=== PATIENT | female | born 1980 | race African-American/Black ===

== ENCOUNTER 2016-09-24 06:34 | Inpatient (IN) ==
[2016-09-24] MEDS ORDERED: SODIUM CHLORIDE 0.9% 500 ML IV STA (07:25)
[2016-09-24] MEDS ORDERED: ONDANSETRON 4 MG/2 ML VIAL IV STA (07:25)
[2016-09-24 07:33] LABS: Apearance,Urine CLOUDY (Clear); Bacteria,Urine Occasional /HPF (Few); Bilirubin,Urine Negative (Negative); Blood, Urine Negative (Negative); Glucose,Urine (UA) Negative (Negative); Ketones,Urine Negative (Negative); Mucus,Urine Occasional /LPF (Occasional); Nitrite,Urine Negative (Negative); Protein,Urine Negative; RBC,Urine 2 /HPF (0-4); Squamous Epithelial Cell,Urine Few /HPF (0-10); Urine Color Yellow (Yellow); Urine Specific Gravity 1.021 (1.001-1.035); Urine Urobilinogen < 2.0 EU/DL (0.2-1.0); WBC,Urine 4 /HPF (0-6)
[2016-09-24] MEDS ORDERED: ONDANSETRON 4 MG/2 ML VIAL ONE (07:34)
[2016-09-24 07:37] LABS: Basophils # 0.1 10*3/uL (0.0-0.2); Basophils % 0.4 % (0.0-0.8); Hematocrit 33.7 VOL% (35.7-47.0); Hemoglobin 11.5 GM/DL (12.0-16.0); Immature Granulocytes % 0.5 %; Immature Granulocytes Absolute 0.11 #; Lymphocytes # 2.6 10*3/uL (1.4-4.0); Lymphocytes % 12.9 % (21.3-54.2); Mean Corpuscular HGB Conc 34.1 GM/DL (32-36); Mean Corpuscular Hemoglobin 28 PG (27-34); Mean Corpuscular Volume 82.6 FL (87-102); Mean Platelet Volume 10.1 FL (9.6-12.0); Monocytes # 1.1 10*3/uL (0.11-0.8); Monocytes % 5.2 % (1.7-12.7); Neutrophils # 16.4 10*3/uL (1.4-7.4); Platelet Count 438 T/CUMM (130-400); Red Blood Count 4.08 MC/CUMM (3.8-5.5); White Blood Count 20.3 T/CUMM (4-12)
[2016-09-24 08:10] LABS: Alanine Aminotransferase 26 U/L (13-56); Albumin 3.8 G/DL (3.4-5.0); Alkaline Phosphatase 88 U/L (45-117); Aspartate Amino Transferase 18 U/L (0-37); Bilirubin,Total < 0.39 MG/DL (0.2-1.0); Blood Urea Nitrogen 11 MG/DL (7-18); Calcium 8.8 MG/DL (8.5-10.1); Glucose 110 MG/DL (74-106); Magnesium 2.2 MG/DL (1.8-2.4); Osmolality,Calculated 272.8 MOS/KG (273-304); Sodium 137 MMOL/L (136-145); Total Protein 7.2 G/DL (6.4-8.3)
[2016-09-24 08:31] LABS: Band Neutrophils 2 % (0-10); Hypochromasia Slight; Lymphocytes 16 % (20-55); Microcytosis Slight; Segmented Neutrophils 79 % (50-85); Total Cells Counted 100
--- NOTE | 2016-09-24 08:34 | Ultrasound Report ---
Exam: US abdomen limited Date: 09/24/2016 7:26 AM Comparison: 07/21/2010 Indication: Right upper quadrant pain with nausea Technique:[Multiple transabdominal real-time scans were obtained of the right upper quadrant. Color-flow scans obtained. Ultrasound images were captured and stored.] Findings: No gallstones identified. Wall of gallbladder measures 2.7 mm with negative sonographic Thomas sign. CBD is normal in size measuring 3 mm. The liver is normal in size with fatty infiltration. Right kidney measures 108 mm in length with no mass or hydronephrosis. The visualized pancreas and aorta have an unremarkable appearance. However the pancreas, distal aorta including aortic bifurcation, and IVC are obscured by bowel gas. Color flow documented. Limited color flow scans obtained. Evidence of ascites around the liver, spleen and in the visualized pelvis. Impression: No definite gallstones are identified. The wall of the gallbladder is not significantly thickened with negative sonographic Thomas sign. Fatty infiltration of the liver. Interval development of ascites. Bowel gas limits exam. PROCEDURE INTERPRETED AT [facility] DEPARTMENT OF RADIOLOGY Final Report Signed by: Dr. Priti Quinn
--- NOTE | 2016-09-24 09:39 | CT Report ---
CT abdomen pelvis w con Indication: Generalized abdominal pain. Elevated white blood cell count. Ascites. Comparison: None. Technique: CT of the abdomen and pelvis was performed following administration of intravenous contrast. The CT examination was performed using one or more of the following dose reduction techniques: Automatic exposure control, adjustment of the mA and kV according to patient size, or iterative reconstruction techniques. Findings: Extremely large field of view utilized for image acquisition reduces anatomic detail. Lower chest: No acute findings are noted within the lower chest. Liver: No specific abnormality of the liver is demonstrated. The portal vein appears patent. Ascites is noted within the upper abdomen surrounding the liver and surrounding the spleen. Gallbladder: The gallbladder demonstrates no significant abnormality. Spleen: Spleen is normal in size and appearance. Pancreas: Pancreas demonstrates no significant abnormality. Adrenal glands: The adrenal glands demonstrate no significant abnormalities. Kidneys: The kidneys demonstrate no significant abnormalities. Aorta: The aorta demonstrates no significant abnormality. Inferior vena cava: The inferior vena cava demonstrates no significant abnormality. Lymph nodes: A few borderline to minimally enlarged lymph nodes or soft tissue nodules are noted within the anterior mesenteric fat and peritoneal fat of the abdomen. Example, image #102, 5 mm focus is present. Stomach and bowel: Closely approximated to the greater curvature of the stomach, but not distinctly arising from the stomach, there is a moderate to large heterogeneously enhancing solid mass measuring 10 cm in transverse dimension, 11.2 cm in AP dimension, and 13.2 cm in craniocaudal dimension. Stomach and duodenum otherwise are unremarkable. The small bowel loops demonstrate no significant abnormalities. There is heterogeneous attenuation of the anterior omentum and anterior peritoneal fat without distinct evidence of nodularity or mass involving the peritoneal surface. Diverticula are present along the hepatic flexure and proximal transverse large bowel. Large bowel is otherwise unremarkable. Intrapelvic contents: Uterus and ovaries are unremarkable. The intrapelvic contents with exception of ascites are unremarkable. Skeletal structures: The imaged bony structures of the lumbar spine, lower chest, pelvis, proximal femurs demonstrate no acute findings. Soft tissues and muscular structure of the body wall: Demonstrate no significant abnormalities. Impression: 1. Large heterogeneously enhancing solid mass in close approximation to the stomach possibly arising from the stomach as primary differential consideration including gastrointestinal stromal tumor (GIST). 2. Presence of intra-abdominal and intrapelvic ascites combined with small enhancing nodular foci of attenuation suggesting borderline to minimally enlarged lymph nodes or soft tissue nodules is worrisome for omental metastatic disease. No discrete enhancing nodules or nodularity of the peritoneal lining can be identified to suggest peritoneal disease. 3. Colonic diverticulosis is demonstrated without evidence of diverticulitis. 09/24/2016 9:28 AM PROCEDURE INTERPRETED AT [facility] DEPARTMENT OF RADIOLOGY Final Report Signed by: Dr. Kvng Ayers
[2016-09-24] MEDS ORDERED: LORazepam 2 MG/1 ML VIAL IV STA (10:35)
[2016-09-24] MEDS ORDERED: ONDANSETRON 4 MG/2 ML VIAL IV PRN (10:36)
[2016-09-24] MEDS ORDERED: MORPHINE 2 MG/1 ML SYRINGE IV PRN (10:36)
[2016-09-24] MEDS ORDERED: LORazepam 2 MG/1 ML VIAL ONE (10:42)
--- NOTE | 2016-09-24 10:51 | Hospitalist History & Physical ---
<Tasha Jacob - Last Filed: 09/24/16 10:49> Assessment and Plan (1) Leukocytosis Status: Acute Assessment and plan: WBCs are noted at 20.3. We will start Zosyn every 6 hours. Current Visit: Yes (2) Abdominal mass Status: Acute Assessment and plan: CT in of the abdomen and pelvis suggested a large had a road generously enhancing solid mass arising from the stomach as well as primary differential consideration including gastrointestinal stromal tumor. This is very concerning to me; however the patient needs a biopsy to confirm diagnosis. She is obviously overloaded with the new findings. We will consult surgery to evaluate. We will hydrate and manage pain and nausea. Current Visit: Yes History of Present Illness Chief complaint: abdominal pain History of present illness: This is a very pleasant 36-year-old female that presented to the ED at [facility] this morning for evaluation of abdominal pain. Patient has a medical history significant for hypertension. She reports no surgical history at the time of encounter. The patient reported the onset of pain about 2 days prior to presentation. She sought medical attention on yesterday in [facility]. She reports that she was seen there, given a GI cocktail, and discharged. She returned home and took a laxative, however she did not have any relief. She also reports that during the encounter at the hospital in [place], she did not receive any x-rays or blood work during the encounter. She reports no current tobacco, alcohol, or illicit drug use. However she does report abdominal pain, dysuria, fever, nausea, pain and discomfort in the right shoulder, decrease in p.o. intake, and pain upon minimal movement. At the time of ED presentation labs were obtained, which revealed gross leukocytosis at 20.3, hemoglobin at 11.5, hematocrit 33.7, MCV at 82.6, platelet count of 138, neutrophils % at 81, lymphocytes % at 12.9, neutrophil # at 16.4, monocyte # at 1.1, and lymphocytes at 16. Chemistry panels were significant for a glucose level at 110 and calculated osmolality at 272.8. Lipid panel revealed a cholesterol level at 219 and HDL cholesterol at 39. Urinalysis was significant for small amount of leukocytes and urobilinogen less than 2.0. Her urine test was negative. Ultrasound of the abdomen reported no definite gallstones, the wall of the gallbladder is not significant currently thickened with negative sonographic Thomas sign, fatty infiltration of the liver, interval development of ascites, and bowel gas limits the exam. CT of the abdomen reported a large heterogeneously enhancing solid mass in close approximation to the stomach possibly arising from the stomach is a primary differential consideration including gastrointestinal stromal tumor, presence of intra-abdominal and intrapelvic ascites combined with small enhancing nodular foci of attenuation suggesting borderline to minimally enlarged lymph nodes or soft tissue nose is worrisome for omental metastatic disease, no discrete enhancing nodules or nodularity of the peritoneal lying can be identified to suggest peritoneal disease, and colonic diverticulosis is demonstrated without evidence of diverticulitis. After brief discussion with both Dr. Carter and Dr. Watts, the patient will be admitted to the hospitalist services for further evaluation. We will consult surgery to evaluate and assist during the clinical encounter. Home Medications Medication Instructions Recorded Confirmed Type Albuterol Sulfate [Ventolin HFA] 2 puffs INH Q4H PRN 09/24/16 09/24/16 History Losartan [Cozaar] 50 mg PO DAILY 09/24/16 09/24/16 History hydroCHLOROthiazide 25 mg PO DAILY 09/24/16 09/24/16 History [Hydrochlorothiazide] Allergies Allergy/AdvReac Type Severity Reaction Status Date / Time No Known Allergies Allergy Verified 09/24/16 06:39 Medical,Surgical,& Family Hx - Medical History Cardio: History of: Hypertension - Social History Smoking Status: Never smoker Frequency of Alcohol Use: Occasionally Type of Drug Use: None Marital Status: Lives With:: Spouse Functional capacity: independent ambulation 12 point system: reviewed and no additional remarkable complaints except as stated Exam - Constitutional Vitals: Period Temp Pulse Resp BP Sys/Mccauley Pulse Ox Last 24 Hr 98.6 F 98-116 16-20 107-151/68-99 100-100 General appearance: over weight - Head Head exam: Present: normal inspection, normocephalic, atraumatic - Eye Eye exam: Present: EOMI, conjunctival injection Pupils: Present: CASANDRA, normal accommodation - ENT ENT exam: Present: normal exam, normal external ear exam, normal oropharynx - Neck Neck exam: Present: normal inspection. Absent: lymphadenopathy, meningismus - Respiratory Respiratory exam: Present: clear to auscultation bilaterally, rales, rhonchi, stridor, wheezes - Cardiovascular Cardiovascular exam: Present: gallop, tachycardia. Absent: carotid bruit, diastolic murmur, JVD, rubs, systolic murmur - GI/Abdominal GI/Abdominal exam: Present: normal bowel sounds, tenderness (Right upper quadrant), soft - Extremities Exam Extremities exam: Present: normal inspection, normal capillary refill, full ROM. Absent: edema - Back Exam Back exam: Present: CVA tenderness (L), CVA tenderness (R) - Neurological Exam Neurological exam: Present: alert, oriented X3, CN II-XII intact - Psychiatric Psychiatric exam: Present: anxious, other (tearful) - Skin Skin exam: Present: normal color, warm, dry Results - Labs CBC & BMP: 09/24/16 07:12 09/24/16 07:12 Lab Results: I have reviewed the past 24 hour labs Quality Measures - VTE Contraindication to Pharmacological VTE Prophylaxis: Wafarin Use 1st Trimester of <Alessio Watts - Last Filed: 09/24/16 16:42> History of Present Illness History of present illness: Patient seen and examined independently of YANIV Jacob, agree with assessment and plan as documented. 36 y/o AAF being admitted with a mass on CT, which appears to be close to her stomach. Family history positive for prostate cancer in her father and breast cancer in her grandmother. 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 Surgery has already been consulted and seen the patient. Cancer markers ordered. CT being repeated with contrast. Will get GI to evaluate for assistance. Exam - Constitutional Vitals: Period Temp Pulse Resp BP Sys/Mccauley Pulse Ox Last 24 Hr 98.5 F-98.6 F 98-119 16-20 107-155/68-99 98-100 Results - Labs CBC & BMP: 09/24/16 07:12 09/24/16 07:12
[2016-09-24 11:03] LABS: Risk Ratio 5.62; Thyroid Stimulating Hormone 2.11 uIU/ml (0.358-3.74)
--- NOTE | 2016-09-24 11:34 | Emergency Department Note ---
Sandra Alexis Hilary, am scribing for, and in the presence of, Jose Daniel Carter MD 07:27. Emma Alexis Phillip K, MD, personally performed the services described in this documentation, ascribed by Ondina Flores in my presence, and it is both accurate and complete . Arrival - Arrival Chief Complaint: Abdominal / Flank Pain Stated Complaint: abd pain ED Nursing Triage Note: C/O Generalized abd pain- Unknown when last BM was; Pt reports taking a laxative yesterday without any results. Pt reports that she was seen at [facility] yesterday and was given a GI cocktail without any relief. Pt denies that they did blood work or xrays while she was there. Pt also reports dysuria. Denies fever. Mode of Arrival: Wheelchair Limitations: No Limitations Source: Patient, RN Notes Reviewed - History of Present Illness HPI Narrative: Pt is a 36 y/o black female presenting to the ED with c/o generalized abdominal pain which onset 2 days ago and got worse last night. She reports that she was seen at [facility] yesterday and was given a GI cocktail with no relief and states they did not do any blood work or xrays while she was there, she also states she took a laxative yesterdays with still no relief. Pt confirms abdominal pain, dysuria, fever, nausea, pain in right shoulder, decreased appetite and pain worsens upon movement but denies vomiting or hematuria. Pt has a PMHx of HTN. No other complaints or problems stated in the ED. Onset (ago): day(s) Date of Last Menstrual Period: September 06 Allergies/Adverse Reactions: Allergies Allergy/AdvReac Type Severity Reaction Status Date / Time No Known Allergies Allergy Verified 09/24/16 06:39 Home Medications: Home Medications Medication Instructions Recorded Confirmed Type Albuterol Sulfate [Ventolin HFA] 2 puffs INH Q4H PRN 09/24/16 09/24/16 History Losartan [Cozaar] 50 mg PO DAILY 09/24/16 09/24/16 History hydroCHLOROthiazide 25 mg PO DAILY 09/24/16 09/24/16 History [Hydrochlorothiazide] Review of System - Review of System 12 point system: reviewed and no additional remarkable complaints except as stated - Review of System Constitutional: Absent: fever Gastrointestinal: Present: abdominal pain, nausea. Absent: vomiting Genitourinary female: Present: dysuria. Absent: hematuria Musculoskeletal: Present: joint swelling (right shoulder pain) Medical,Surgical,& Family Hx - Medical History Cardio: History of: Hypertension - Social History Smoking Status: Never smoker Frequency of Alcohol Use: Occasionally Type of Drug Use: None Exam Vital Signs: Vital Signs Temperature 98.6 F 09/24/16 06:40 Pulse Rate 106 H 09/24/16 10:45 Respiratory Rate 20 09/24/16 10:45 Blood Pressure 130/90 09/24/16 10:45 O2 Sat by Pulse Oximetry 100 09/24/16 10:45 - General General appearance: alert, in no apparent distress - Head Head exam: Present: atraumatic, normocephalic - Eye Eye exam: Present: normal appearance, PERRL, EOMI - ENT ENT exam: Present: mucous membranes moist, TM's normal bilaterally. Absent: mucous membranes dry - Neck Neck exam: Present: full ROM, trachea midline. Absent: tenderness - Chest Chest inspection: Present: symmetric chest wall rise. Absent: tenderness - Respiratory Respiratory exam: Present: normal lung sounds bilaterally. Absent: respiratory distress - Cardiovascular Cardiovascular exam: Present: normal rhythm, tachycardia, normal heart sounds, gallop. Absent: murmur, rubs - Abdominal Exam Abdominal exam: Present: soft, tenderness (RUQ tenderness), normal bowel sounds. Absent: distention - Extremities Exam Extremities exam: Present: full ROM. Absent: tenderness - Back Exam Back exam: Present: full ROM. Absent: tenderness, CVA tenderness (R), CVA tenderness (L) - Neurological Exam Neurological exam: Present: alert, oriented X3, CN II-XII intact, motor sensory deficit - Psychiatric Psychiatric exam: Present: normal affect, normal mood - Skin Skin exam: Present: warm, dry, intact, normal color. Absent: rash Course Course Narrative: Patient will be admitted to the hospitalist for further workup. Results - Labs CBC & BMP: 09/24/16 07:12 09/24/16 07:12 Lab Results: I have reviewed the patients labs Labs: Laboratory Tests 09/24/16 09/24/16 07:12 07:12 WBC 20.3 H RBC 4.08 Hgb 11.5 L Hct 33.7 L MCV 82.6 L Plt Count 438 H Neut % (Auto) 81.0 H Lymph % (Auto) 12.9 L Neut # (Auto) 16.4 H [place] # (Auto) 1.1 H Urine Color Yellow Urine Appearance Cloudy Urine Urobilinogen < 2.0 H Urine Leukocytes Small H Urine Test Negative Laboratory Tests 09/24/16 07:12 Sodium 137 Potassium 4.0 Chloride 103 Carbon Dioxide 23 Glucose 110 H Calculated Osmolality 272.8 L Laboratory Tests 09/24/16 07:12 Total Counted 100 Lymphocytes 16 L Hypochromasia Slight Microcytosis Slight - Diagnostic Findings Procedure: CT Abdomen and Pelvis: report reviewed by me (1. Large heterogeneously enhancing solid mass in close approximation to the stomach possibly arising from the stomach as primary differential consideration including gastrointestinal stromal tumor (GIST) 2. Presence of intra-abdominal and intrapelvic ascites combined with small enhancing nodular foci of attenuation suggesting borderline to minimally enlarged lymph nodes or soft tissue nodules is worrisome for nodularity of the peritoneal lining can be identified to suggest peritoneal disease. 3. Colonic diverticulosis is demonstrated without evidence of diverticulitis. ), Ultrasound: report reviewed by me (abdomen: No definite gallstones are identified. The wall of the gallbladder is not significantly thickened with negative sonographic Thomas sign. Fatty infiltration of the liver. Interval development of ascites. Bowel gas limits exam.) Disposition Clinical Impression: Abdominal mass, right upper quadrant, Elevated WBC count Case discussed with: patient, patient's family Disposition: Still a Patient Condition: Guarded
[2016-09-24] MEDS: SODIUM CHLORIDE 0.9% 1,000 ML IV SCH (11:41)
[2016-09-24] MEDS ORDERED: ALBUTEROL 2.5 MG/3 ML NEB RESP TX PRN (16:02)
--- NOTE | 2016-09-24 16:08 | General Surgery Consult Note ---
Assessment and Plan - Time spent with patient Time spent with patient: Greater than 30 minutes (1) Abdominal mass Status: Acute Assessment and plan: Impression: Abdominal mass etiology unknown possibly from the stomach but cannot clearly determine. Plan: 1. Because of her elevated white count and her ascites go ahead and put her on low Mefoxin for right now. 2. We will repeat a CT scan of the abdomen and pelvis tomorrow with contrast nor see if we can identify where this mass may be coming from. 3. She may still need to have BE and a upper GI series is difficult to say. 4. Will get GI to see her for consideration of scopes in order to count to be sure what we might be dealing with. 5. Will consult oncology to look at possible tumor markers and get their opinion as well he might be looking at this time. Current Visit: Yes Qualifiers: Abdominal location: epigastric Qualified Code(s): R19.06 - Epigastric swelling, mass or lump History of Present Illness Chief complaint: Abdominal mass History of present illness: Ms. Keen is a 36 year old female -[place] who essentially been in pretty good health somewhat overweight with no unusual complaints of pain or weight loss. Over the last couple days though she has had some increased abdominal discomfort little bit worse today brought her into the emergency room. While in the emergency room she had an ultrasound of the gallbladder which basically was negative since she has been somewhat like epigastric pain. This was proceeded with a CT scan that unfortunately was not with contrast. This demonstrated a mass in the abdomen where it was difficult to tell where it was coming from suggestive of possibly coming from the stomach. There was some ascites associated with it at this time. There may be some necrotic changes in it that may be why she is symptomatic at this time. At this point will go ahead and try to get a contrasted CT tomorrow to get an idea what we might be dealing with us if we can identify worse coming from. We will go ahead and get GI involved for possible scope for biopsy. We could consider paracentesis with to obtain fluid questionable whether not be safe to do a biopsy of the tumor mass itself. We will get oncology to see him for possible evaluation and any tumor markers that may need to be done at this time. Patient may require surgery at some point but I think it is important at this time to try to identify where this mass is coming from. I favor keeping her own may be just some full liquids for now and make sure we get her bowels good and clean for the possibility of a colon scope first of the week and possible EGD. Home Medications Medication Instructions Recorded Confirmed Type Albuterol Sulfate [Ventolin HFA] 2 puffs INH Q4H PRN 09/24/16 09/24/16 History Losartan [Cozaar] 50 mg PO DAILY 09/24/16 09/24/16 History hydroCHLOROthiazide 25 mg PO DAILY 09/24/16 09/24/16 History [Hydrochlorothiazide] Allergies Allergy/AdvReac Type Severity Reaction Status Date / Time No Known Allergies Allergy Verified 09/24/16 06:39 Medical,Surgical,& Family Hx - Medical History Cardio: History of: Hypertension Gastrointestinal: History of: GERD Reproductive: History of: Complication - Surgical History HEENT Surgeries: Surgical HX of: Tonsilectomy & Adenoidectomy Abdominal Surgeries: Surgical HX of: Abdominal Surgery (tubal ligation) Reproductive Surgeries: Surgical HX of;: Tubal Ligation Patient denies;: Genitourinary Surgery - Family History Family History: Reports;: Family Cancer (prostate ca Dad), Family Diabetes ( sister), Family Heart Disease (dad), Family Hypertension (most family) Denies;: Family Psychiatric Problems, Family Stroke - Social History Smoking Status: Never smoker Frequency of Alcohol Use: Occasionally Type of Drug Use: None 12 point system: reviewed and no additional remarkable complaints except as stated Exam - Constitutional Vitals: Period Temp Pulse Resp BP Sys/Mccauley Pulse Ox Last 24 Hr 98.5 F-98.6 F 98-119 16-20 107-155/68-99 98-100 General appearance: mild distress - Head Head exam: Present: normal inspection - ENT ENT exam: Present: normal exam - Neck Neck exam: Present: normal inspection - Respiratory Respiratory exam: Present: clear to auscultation bilaterally, rales - Cardiovascular Cardiovascular exam: Present: RRR - GI/Abdominal GI/Abdominal exam: Present: hypoactive bowel sounds, tenderness (Epigastric and left upper quadrant area), soft, other (Fullness in the upper part of the abdomen little mild tenderness on deep palpation) - Extremities Exam Extremities exam: Present: normal inspection - Back Exam Back exam: Present: normal inspection - Neurological Exam Neurological exam: Present: alert, oriented X3, CN II-XII intact - Skin Skin exam: Present: normal color, warm, dry Quality Measures - VTE Contraindication to Pharmacological VTE Prophylaxis: Wafarin Use 1st Trimester of Results - Labs CBC & BMP: 09/24/16 07:12 09/24/16 07:12 Lab Results: I have reviewed the past 24 hour labs - Diagnostic Findings Procedure: CT Abdomen and Pelvis: report reviewed by me (Noncontrasted showing a mass in the left side the abdomen), Ultrasound: report reviewed by me ( Gallbladder appears to be normal)
[2016-09-24] MEDS: cefOXitin 1,000 MG in SODIUM CHLORIDE 0.9% 100 ML IV SCH ×2 (17:11→21:38)
[2016-09-25] MEDS: cefOXitin 1,000 MG in SODIUM CHLORIDE 0.9% 100 ML IV SCH ×4 (04:29→23:31)
[2016-09-25] MEDS: SODIUM CHLORIDE 0.9% 1,000 ML IV SCH ×4 (04:54→23:34)
[2016-09-25 05:37] LABS: Basophils # 0.1 10*3/uL (0.0-0.2); Basophils % 0.5 % (0.0-0.8); Eosinophils % 0.3 % (0.00-10.9); Hematocrit 28.3 VOL% (35.7-47.0); Hemoglobin 9.3 GM/DL (12.0-16.0); Immature Granulocytes % 0.9 %; Immature Granulocytes Absolute 0.12 #; Lymphocytes # 2.9 10*3/uL (1.4-4.0); Lymphocytes % 22.1 % (21.3-54.2); Mean Corpuscular HGB Conc 32.9 GM/DL (32-36); Mean Corpuscular Hemoglobin 28 PG (27-34); Mean Platelet Volume 9.9 FL (9.6-12.0); Monocytes % 7.2 % (1.7-12.7); Neutrophils # 9.1 10*3/uL (1.4-7.4); Platelet Count 365 T/CUMM (130-400); Red Blood Count 3.37 MC/CUMM (3.8-5.5); Red Cell Distribution Width 15.2 % (9.3-17.3); White Blood Count 13.2 T/CUMM (4-12)
[2016-09-25 05:46] LABS: Partial Thromboplastin Time 26.1 SECS (0-40)
[2016-09-25 06:20] LABS: Albumin 3.2 G/DL (3.4-5.0); Bilirubin,Total 0.6 MG/DL (0.2-1.0); Calcium 8.1 MG/DL (8.5-10.1); Magnesium 2.2 MG/DL (1.8-2.4); Osmolality,Calculated 277.4 MOS/KG (273-304); Potassium 3.8 MMOL/L (3.5-5.1); Total Protein 6.1 G/DL (6.4-8.3)
[2016-09-25 08:15] LABS: % Iron Saturation 8.4 % (18-50); Ferritin 84.5 ng/ml (8-252)
[2016-09-25] MEDS: LOSARTAN 50 MG TABLET PO SCH (08:59)
[2016-09-25] MEDS: hydroCHLOROthiazide 25 MG TABLET PO SCH (09:00)
--- NOTE | 2016-09-25 09:09 | CT Report ---
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 Technique: CT of the abdomen and pelvis was performed following administration of intravenous and oral contrast. Coronal and sagittal reformatted images were additionally created and submitted for review. The total DLP is 3182.5 mGy*cm. Dose reduction: This CT exam was performed using one or more of the following dose reduction techniques: Automated exposure control, automated adjustment of the mA and/or KV according to patient size, or use of iterative reconstruction technique. Findings: Very minimal posterior basilar dependent atelectatic changes are noted bilaterally. Lung bases are otherwise clear. There is no pleural or pericardial effusion. ABDOMEN: Liver/Gallbladder: No abnormal enhancing hepatic lesions. No biliary ductal dilatation or gallstones. Spleen: No acute findings. Pancreas: No acute findings. Adrenals: Within normal limits in appearance. Kidneys: Symmetric enhancement with no hydronephrosis/focal mass or other abnormality. Delayed images demonstrate contrast excretion as expected from both kidneys. Bowel/mesentery: Again, there is a large enhancing mass which is inseparable from the greater curvature of the stomach in the left upper quadrant of the abdomen. Overall size of the mass is unchanged (approximately 13 x 10 x 11 cm) when compared to the study from one day previously. On axial image [id number] and sagittal image [id number], this large enhancing mass is essentially inseparable from the stomach. Again, the primary differential consideration would be a GIST tumor (in the absence of other cancer history). Other neoplastic considerations cannot be entirely excluded but are favored to be less likely. Again, there is also mild thickening within the adjacent omentum primarily within the left upper quadrant. There is at least one punctate enhancing nodule measuring 7 mm (axial image 104) which may represent an omental metastatic deposit. There is moderate ascites within the abdomen with perihepatic and perisplenic free fluid noted. There is no evidence of small bowel dilatation/obstruction. There is no mesenteric adenopathy is visualized. Distal colon is nondilated and oral contrast is noted throughout small and large bowel. Retroperitoneum: No evidence of aortic aneurysm or significant retroperitoneal adenopathy. PELVIS: Minimal free fluid noted dependently, likely reactive. Bladder appears unremarkable. Uterus and ovaries are unremarkable for CT technique. BONES: No acute or suspicious osseous abnormalities are identified. IMPRESSION: 1. Similar appearance of the large heterogeneous enhancing solid mass in close approximation of the stomach with the similar primary differential consideration of gastrointestinal stromal tumor. 2. Similar intra-abdominal ascites. Similar prominence of the omentum is nonspecific but at least one small enhancing nodule within the omentum may represent metastatic spread. 09/25/2016 8:53 AM PROCEDURE INTERPRETED AT [facility] DEPARTMENT OF RADIOLOGY Final Report Signed by: Rao Parra
--- NOTE | 2016-09-25 09:22 | EKG Report ---
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
--- NOTE | 2016-09-25 09:53 | Gastrointestinal Consult Note ---
Assessment and Plan - Time spent with patient Time spent with patient: Greater than 30 minutes (1) Abdominal mass Status: Acute Current Visit: Yes Qualifiers: Abdominal location: epigastric Qualified Code(s): R19.06 - Epigastric swelling, mass or lump (2) Other specified counseling Status: Acute Current Visit: Yes History of Present Illness History of present illness: Ms. Keen is a 36 year old female Home Medications Medication Instructions Recorded Confirmed Type Albuterol Sulfate [Ventolin HFA] 2 puffs INH Q4H PRN 09/24/16 09/24/16 History Losartan [Cozaar] 50 mg PO DAILY 09/24/16 09/24/16 History hydroCHLOROthiazide 25 mg PO DAILY 09/24/16 09/24/16 History [Hydrochlorothiazide] Allergies Allergy/AdvReac Type Severity Reaction Status Date / Time No Known Allergies Allergy Verified 09/24/16 06:39 Medical,Surgical,& Family Hx - Medical History Cardio: History of: Hypertension Gastrointestinal: History of: GERD Reproductive: History of: Complication - Surgical History HEENT Surgeries: Surgical HX of: Tonsilectomy & Adenoidectomy Abdominal Surgeries: Surgical HX of: Abdominal Surgery (tubal ligation) Reproductive Surgeries: Surgical HX of;: Tubal Ligation Patient denies;: Genitourinary Surgery - Family History Family History: Reports;: Family Cancer (prostate ca Dad), Family Diabetes ( sister), Family Heart Disease (dad), Family Hypertension (most family) Denies;: Family Psychiatric Problems, Family Stroke - Social History Smoking Status: Never smoker Frequency of Alcohol Use: Occasionally Type of Drug Use: None Exam - Constitutional Vitals: Period Temp Pulse Resp BP Sys/Mccauley Pulse Ox Last 24 Hr 98.3 F-98.5 F 93-119 18-20 111-155/68-92 95-100 Results - Labs CBC & BMP: 09/25/16 05:13 09/25/16 05:13 Quality Measures - VTE Contraindication to Pharmacological VTE Prophylaxis: Wafarin Use 1st Trimester of Note Addendum: PLEASE NOTE -- automatic citation of patient information is unavoidable in this electronic note. I have made a reasonable effort to review the information cited , but it is not a part of my evaluation, impression, or recommendation unless specifically discussed in the dictated text that follows. As well, voice recognition software was used in the creation of this clinical note. Reasonable effort was made to identify and correct gross errors. Despite proofreading, errors in nursery nurse may be present, including nonsense verbiage at times. If you encounter such an error, please contact me at [phone] for discussion and correction. -- Alix Chief complaint: abdominal mass History of present illness: This is a new patient, a 36-year-old female seen by consultation for evaluation of abdominal mass identified on CT scan. The patient is admitted to the hospitalist service under the care of Dr. Watts with a primary diagnosis of same. The patient was admitted through the emergency department yesterday with primary complaint of abdominal pain. Evaluation at that time revealed leukocytosis with minimal left shift, possible urinary tract infection, and the aforementioned abnormal CT findings. The patient was admitted for surgical consultation and she has, in fact, been seen by a neurosurgical nurse, Dr. Young, who has recommended further radiologic and endoscopic evaluation in order to better characterize this lesion. Serologic tumor markers have been ordered and, so far, are negative. The patient reports feeling pretty normal at present. She denies abdominal pain, nausea, vomiting, and bowel changes. She is very worried that this may be a cancer. Patient denies fever, chills, night sweats, rigors, headache, dizziness, neck pain, visual changes, redness of the eyes, dysphagia, odynophagia, difficulty chewing, chest pain, shortness of breath, weight loss, nausea, vomiting, regurgitation, hematemesis, diarrhea, hematochezia, melena, proctalgia, constipation, dysuria, skin changes, temperature regulation issues, flushing, easy bleeding/bruising, musculoskeletal pain, mental status change, numbness/ weakness in the extremities, yellowing of the eyes/skin, cutaneous eruptions, allergies to food or drug, family history of gastrointestinal cancer and colon polyps, and other complaints in general. Review of systems: 12 point review of systems was negative except as documented above. Outpatient medications: albuterol, losartan, hydrochlorothiazide Inpatient medications: albuterol, Cefoxitin, hydrochlorothiazide, losartan, morphine, Zofran, normal saline infusion Past Medical History: hypertension, gastroesophageal reflux disease, tubal ligation Social history: negative tobacco. Occasional alcohol Family history: father with prostate cancer; no known gastrointestinal cancer Physical examination: Vital Signs: Current vital signs reviewed and documented above. General Appearance: well-appearing. Not acutely ill. Head: Normocephalic. Neck: Palpation of the neck revealed no abnormalities. Eyes: No scleral icterus. No scleral injection. No conjunctival pallor. Oral Cavity: Odor of breath was normal. No drooling was observed. Lips showed no abnormalities. Floor of the mouth showed no abnormalities. Pharynx: Oropharynx was normal. Lungs: Respiration rhythm and depth was normal. Cardiovascular: Heart rate and rhythm were normal. No murmurs were appreciated. Abdomen: abdomen was protuberant due to obesity but not distended. Abdominal palpation revealed no tenderness and mass was not discovered. Ascites was not appreciated. Abdominal auscultation revealed positive bowel sounds. Musculoskeletal System: Musculoskeletal system was grossly normal. Neurological: level of consciousness was normal. Speech was normal. Skin: General appearance was normal. Color and pigmentation were normal. No skin lesions. Laboratory: white blood count 13.2, hemoglobin 9.3, hematocrit 28.3, platelets 365, INR 1.0, PT 10.0, ALT 23, AST 12, total bilirubin 0.6, CEA undetectable, CA 19-9 undetectable Radiology: CT of the abdomen and pelvis, September 24, 2016 -- large heterogeneous enhancing solid mass in close approximation to the stomach, likely representing a neoplastic lesion; prominence of the omentum with intra-abdominal ascites; one small enhancing nodule within the omentum Impressions: 1. 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 The differential diagnosis includes gastrointestinal stromal tumor (GIST), leiomyoma, leiomyosarcoma, and several others. The large size likely contributes to the heterogeneous appearance as there is likely some measure of necrosis. As well, the possible metastatic spread to the omentum is consistent. I agree with oncology evaluation as, if this is a stromal tumor, the patient may be a candidate for adjuvant chemotherapy. The lesion is not clearly invading the gastric lumen but upper endoscopy for attempted tissue diagnosis is reasonable. Failing that, endoscopic ultrasound is the most reasonable next diagnostic modality. Percutaneous biopsy carries the theoretical risk of metastatic seeding and would generally be avoided. We will plan upper endoscopy on Tuesday and follow up with further recommendations pending the result of that examination. 2. Other specified counseling -- The patient was seen for greater than 30 minutes. The patient was counseled for greater than 50% of this time regarding differential diagnosis, likely diagnosis, diagnostic and therapeutic alternatives, risks/benefits/alternatives of medications and procedures, and plan of care generally. The patient expressed understanding and wishes to proceed. Recommendations: -- continued supportive care -- diagnostic upper endoscopy on Tuesday -- if no diagnosis by upper endoscopy, consider outpatient endoscopic ultrasound for definitive diagnosis -- agree with oncology evaluation -- thank you for this consultation. We will follow with you.
--- NOTE | 2016-09-25 09:53 | Oncology Consult Note ---
Assessment and Plan (1) Abdominal mass Status: Acute Assessment and plan: At this point her clinical situation points toward a gastrointestinal stromal tumor. I think GI evaluation with possible upper endoscopy is the best initial step. The fact that both her CEA and CA-19-9 levels are negative is promising this is not an adenocarcinoma. We are still awaiting her CA 125 level. Surgery has already seen her and I think at some point we will have to at least go into her belly for either resection or staging purposes. For now starting with an EGD would be the most prudent to see what the gastric cavity looks like and possibly obtain a biopsy. I will continue to follow her with you while her case evolves. Current Visit: Yes Qualifiers: Abdominal location: epigastric Qualified Code(s): R19.06 - Epigastric swelling, mass or lump (2) Elevated WBC count Status: Acute Current Visit: Yes History of Present Illness History of present illness: Ms. Keen is a 36 year old female who was admitted with abdominal pain and was found to have a large gastric mass on CT imaging. This mass measured 13 x [address] scan mentioned mild ascites and some question of nodularity of the omentum. Neither one of these findings are definitive for metastatic spread. Her initial tumor markers with CEA and CA-19-9 are negative. She denies any recent weight loss. She denies any significant family history of GI or BOILER RELINER malignancies. 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 She has not yet been seen by GI. Surgery has seen her. Home Medications Medication Instructions Recorded Confirmed Type Albuterol Sulfate [Ventolin HFA] 2 puffs INH Q4H PRN 09/24/16 09/24/16 History Losartan [Cozaar] 50 mg PO DAILY 09/24/16 09/24/16 History hydroCHLOROthiazide 25 mg PO DAILY 09/24/16 09/24/16 History [Hydrochlorothiazide] Allergies Allergy/AdvReac Type Severity Reaction Status Date / Time No Known Allergies Allergy Verified 09/24/16 06:39 Medical,Surgical,& Family Hx - Medical History Cardio: History of: Hypertension Gastrointestinal: History of: GERD Reproductive: History of: Complication - Surgical History HEENT Surgeries: Surgical HX of: Tonsilectomy & Adenoidectomy Abdominal Surgeries: Surgical HX of: Abdominal Surgery (tubal ligation) Reproductive Surgeries: Surgical HX of;: Tubal Ligation Patient denies;: Genitourinary Surgery - Family History Family History: Reports;: Family Cancer (prostate ca Dad), Family Diabetes ( sister), Family Heart Disease (dad), Family Hypertension (most family) Denies;: Family Psychiatric Problems, Family Stroke - Social History Smoking Status: Never smoker Frequency of Alcohol Use: Occasionally Type of Drug Use: None 12 point system: reviewed and no additional remarkable complaints except as stated - Constitutional Constitutional: Absent: fatigue, malaise, weight loss - Gastrointestinal Gastrointestinal: Present: abdominal pain, cramping, early satiety. Absent: dysphagia, hematemesis, hematochezia, melena, vomiting - Musculoskeletal Musculoskeletal ROS: Absent: back pain Exam - Constitutional Vitals: Period Temp Pulse Resp BP Sys/Mccauley Pulse Ox Last 24 Hr 98.3 F-98.5 F 93-119 18-20 111-155/68-92 95-100 General appearance: normal weight, no acute distress - Head Head Exam: Present: normocephalic, atraumatic - Eye Eye Exam: Present: EOMI Pupils: Present: PERRL - ENT ENT exam: Present: normal exam, normal oropharynx - Neck Neck exam: Absent: lymphadenopathy, thyromegaly - Respiratory Respiratory exam: Present: CTAB. Absent: wheezes - Cardiovascular Cardiovascular exam: Present: RRR. Absent: JVD, systolic murmur - GI/Abdominal GI/Abdominal exam: Present: soft. Absent: ascites, distended, firm, mass - Neurological Exam Neurological exam: Present: alert, oriented X3 - Psychiatric Psychiatric exam: Present: normal affect, anxious - Skin Skin exam: Present: warm, dry Results - Labs CBC & BMP: 09/25/16 05:13 09/25/16 05:13 Lab Results: I have reviewed the past 24 hour labs - Diagnostic Findings Procedure: CT Abdomen and Pelvis: report reviewed by me Quality Measures - VTE Contraindication to Pharmacological VTE Prophylaxis: Wafarin Use 1st Trimester of
[2016-09-25] MEDS ORDERED: MAGNESIUM CITRATE 300 ML BOTTLE PO ONE (11:03)
--- NOTE | 2016-09-25 11:06 | General Surgery Progress Note ---
Assessment and Plan - Time spent with patient Time spent with patient: Less than 30 minutes (1) Abdominal mass Status: Acute Assessment and plan: Impression: Abdominal mass etiology unknown possibly from the stomach but cannot clearly determine. Plan: 1. Because of her elevated white count and her ascites go ahead and put her on low Mefoxin for right now. 2. We will repeat a CT scan of the abdomen and pelvis tomorrow with contrast nor see if we can identify where this mass may be coming from. 3. She may still need to have BE and a upper GI series is difficult to say. 4. Will get GI to see her for consideration of scopes in order to count to be sure what we might be dealing with. 5. Will consult oncology to look at possible tumor markers and get their opinion as well he might be looking at this time. 09/25/2016. Patient in general is doing better at this time although she is on her menstrual period at this point. Pain in her abdomen is much improved she is tolerating liquids without problems. Labs look good hematocrit is 29 at this time. Follow-up CT scan with contrast suggests that this is coming off probably the greater curvature distal part of the stomach. She is probably going require a partial gastrectomy or a wedge and this will wait for GI to scope her and see what is present internally at this time. Oncology is seen her and looks like we may be looking at a Gists tumor. Current Visit: Yes Qualifiers: Abdominal location: epigastric Qualified Code(s): R19.06 - Epigastric swelling, mass or lump Subjective Patient reports: Present: feels better, pain is less, tolerating liquids well, afebrile Exam - Constitutional Vitals: Period Temp Pulse Resp BP Sys/Mccauley Pulse Ox Last 24 Hr 98.3 F-98.5 F 93-108 18-20 111-148/68-78 95-98 General appearance: mild distress - Head Head exam: Present: normal inspection - ENT ENT exam: Present: normal exam - Neck Neck exam: Present: normal inspection - Respiratory Respiratory exam: Present: clear to auscultation bilaterally, rales - Cardiovascular Cardiovascular exam: Present: RRR - GI/Abdominal GI/Abdominal exam: Present: hypoactive bowel sounds, soft. Absent: tenderness - Extremities Exam Extremities exam: Present: normal inspection - Back Exam Back exam: Present: normal inspection - Neurological Exam Neurological exam: Present: alert, oriented X3, CN II-XII intact - Skin Skin exam: Present: normal color, warm, dry Results - Labs CBC & BMP: 09/25/16 05:13 09/25/16 05:13 Lab Results: I have reviewed the past 24 hour labs Quality Measures - VTE Contraindication to Pharmacological VTE Prophylaxis: Wafarin Use 1st Trimester of
[2016-09-25] MEDS: ACETAMINOPHEN 325 MG TABLET PO PRN ×2 (12:20→23:32)
--- NOTE | 2016-09-25 12:44 | XRay Report ---
Exam: XR chest 2V Indication: Abdominal mass Comparison study: 07/21/2010 Findings: The heart, mediastinum and bony structures are stable from prior. There is no focal consolidation, pneumothorax or pleural effusion identified. Impression: No acute cardiopulmonary process. No significant change from prior. PROCEDURE INTERPRETED AT [facility] DEPARTMENT OF RADIOLOGY Final Report Signed by: Rao Parra
--- NOTE | 2016-09-25 14:50 | Hospitalist Progress Note ---
Assessment and Plan (1) Urinary tract infection Status: Acute Assessment and plan: UA not very impressive But clinical symptoms match On cefoxitin Current Visit: Yes (2) Hypertension Status: Acute Assessment and plan: Losartan Current Visit: Yes (3) Leukocytosis Status: Acute Assessment and plan: Possibly secondary to uti Improving Current Visit: Yes (4) Abdominal mass Status: Acute Assessment and plan: Surgery, oncology and GI on board Plan for EGD tuesday Current Visit: Yes Qualifiers: Abdominal location: epigastric Qualified Code(s): R19.06 - Epigastric swelling, mass or lump Hospitalist: Subjective Interval history: No acute events overnight. Denies abdominal pain. Exam - Constitutional Vitals: Period Temp Pulse Resp BP Sys/Mccauley Pulse Ox Last 24 Hr 98.3 F-98.8 F 93-111 19-20 111-137/65-75 95-97 General appearance: over weight - Head Head exam: Present: normocephalic, atraumatic - Eye Eye exam: Present: EOMI Pupils: Present: CASANDRA - ENT ENT exam: Present: normal exam - Neck Neck exam: Present: normal inspection - Respiratory Respiratory exam: Present: clear to auscultation bilaterally. Absent: rhonchi, wheezes - Cardiovascular Cardiovascular exam: Present: regular rate and rhythm - GI/Abdominal GI/Abdominal exam: Present: normal bowel sounds, soft. Absent: tenderness, rebound - Extremities Exam Extremities exam: Present: normal inspection - Back Exam Back exam: Present: normal inspection - Neurological Exam Neurological exam: Present: alert, oriented X3 - Psychiatric Psychiatric exam: Present: normal affect, normal mood - Skin Skin exam: Present: warm, intact Results - Labs CBC & BMP: 09/25/16 05:13 09/25/16 05:13 Quality Measures - VTE Contraindication to Pharmacological VTE Prophylaxis: Wafarin Use 1st Trimester of
[2016-09-26] MEDS: cefOXitin 1,000 MG in SODIUM CHLORIDE 0.9% 100 ML IV SCH ×4 (04:39→22:11)
[2016-09-26 05:28] LABS: Basophils # 0.1 10*3/uL (0.0-0.2); Basophils % 0.5 % (0.0-0.8); Eosinophils # 0.1 10*3/uL (0.0-0.87); Eosinophils % 0.6 % (0.00-10.9); Hematocrit 26.2 VOL% (35.7-47.0); Hemoglobin 8.7 GM/DL (12.0-16.0); Immature Granulocytes % 0.5 %; Immature Granulocytes Absolute 0.06 #; Lymphocytes # 2.6 10*3/uL (1.4-4.0); Lymphocytes % 23.6 % (21.3-54.2); Mean Corpuscular HGB Conc 33.2 GM/DL (32-36); Mean Corpuscular Hemoglobin 28 PG (27-34); Mean Corpuscular Volume 83.2 FL (87-102); Mean Platelet Volume 9.7 FL (9.6-12.0); Monocytes # 0.8 10*3/uL (0.11-0.8); Monocytes % 7.1 % (1.7-12.7); Neutrophils # 7.5 10*3/uL (1.4-7.4); Neutrophils % 67.7 % (38.7-73.9); Platelet Count 321 T/CUMM (130-400); Red Blood Count 3.15 MC/CUMM (3.8-5.5); Red Cell Distribution Width 15.3 % (9.3-17.3); White Blood Count 11.1 T/CUMM (4-12)
[2016-09-26 05:58] LABS: Bilirubin,Total 0.5 MG/DL (0.2-1.0); Calcium 8.2 MG/DL (8.5-10.1); Osmolality,Calculated 279.1 MOS/KG (273-304); Potassium 3.4 MMOL/L (3.5-5.1); Total Protein 5.9 G/DL (6.4-8.3)
[2016-09-26] MEDS: SODIUM CHLORIDE 0.9% 1,000 ML IV SCH (06:51)
--- NOTE | 2016-09-26 08:53 | Gastrointestinal Progress Note ---
Assessment and Plan (1) Abdominal mass Status: Acute Current Visit: Yes Qualifiers: Abdominal location: epigastric Qualified Code(s): R19.06 - Epigastric swelling, mass or lump (2) Other specified counseling Status: Acute Current Visit: Yes Exam (Progress Note) - Constitutional Vitals: Period Temp Pulse Resp BP Sys/Mccauley Pulse Ox Last 24 Hr 98.1 F-99.5 F 84-106 16-22 118-145/64-87 98-100 Results - Labs CBC & BMP: 09/26/16 05:14 09/26/16 05:14 Note Addendum: PLEASE NOTE -- automatic citation of patient information is unavoidable in this electronic note. I have made a reasonable effort to review the information cited , but it is not a part of my evaluation, impression, or recommendation unless specifically discussed in the dictated text that follows. As well, voice recognition software was used in the creation of this clinical note. Reasonable effort was made to identify and correct gross errors. Despite proofreading, errors in convict guard may be present, including nonsense verbiage at times. If you encounter such an error, please contact me at [phone] for discussion and correction. -- Alix Chief complaint: abdominal mass History of present illness: the patient is a 36-year-old female seen for follow- up of abdominal mass. She reports feeling about the same today. She has no pain at present. She is tolerating food. She is having bowel movements. She has been seen by the oncology service who also recommended endoscopic evaluation of her stomach. Review of systems: 12 point review of systems was negative except as documented above. Medications: Tylenol, albuterol, Cefoxitin, hydrochlorothiazide, losartan, morphine, Zofran, normal saline infusion Physical examination: Vital Signs: Current vital signs reviewed and documented above. General Appearance: well-appearing. Not acutely ill. Head: Normocephalic. Neck: Palpation of the neck revealed no abnormalities. Eyes: No scleral icterus. No scleral injection. No conjunctival pallor. Oral Cavity: Odor of breath was normal. No drooling was observed. Lips showed no abnormalities. Floor of the mouth showed no abnormalities. Pharynx: Oropharynx was normal. Lungs: Respiration rhythm and depth was normal. Cardiovascular: Heart rate and rhythm were normal. No murmurs were appreciated. Abdomen: abdomen was protuberant due to obesity but not distended. Abdominal palpation revealed no tenderness and mass was not discovered. Ascites was not appreciated. Abdominal auscultation revealed positive bowel sounds. Musculoskeletal System: Musculoskeletal system was grossly normal. Neurological: level of consciousness was normal. Speech was normal. Skin: General appearance was normal. Color and pigmentation were normal. No skin lesions. Laboratory: white blood count 11.1, hemoglobin 8.7, hematocrit 26.2, platelets 321 Radiology: CT of the abdomen and pelvis, September 24, 2016 -- large heterogeneous enhancing solid mass in close approximation to the stomach, likely representing a neoplastic lesion; prominence of the omentum with intra-abdominal ascites; one small enhancing nodule within the omentum Impressions: 1. Abdominal mass -- we will proceed with upper endoscopy tomorrow. We will follow up with further recommendations pending the result of that examination. 2. Other specified counseling -- The patient was seen for less than 30 minutes. The patient was counseled for greater than 50% of this time regarding differential diagnosis, likely diagnosis, diagnostic and therapeutic alternatives, risks/benefits/alternatives of medications and procedures, and plan of care generally. The patient expressed understanding and wishes to proceed. Recommendations: -- continued supportive care -- diagnostic upper endoscopy on Tuesday -- if no diagnosis by upper endoscopy, consider outpatient endoscopic ultrasound for definitive diagnosis -- agree with oncology evaluation -- thank you for this consultation. We will follow with you.
[2016-09-26] MEDS: POTASSIUM CHLORIDE 20 MEQ TABLET PO PRN ×3 (09:13→14:28)
[2016-09-26] MEDS: hydroCHLOROthiazide 25 MG TABLET PO SCH (09:14)
[2016-09-26] MEDS: LOSARTAN 50 MG TABLET PO SCH (09:14)
[2016-09-26 09:32] LABS: INR 0.9; PT Patient Result 9.9 SECS
[2016-09-26] MEDS ORDERED: MAGNESIUM CITRATE 300 ML BOTTLE PO ONE (11:23)
--- NOTE | 2016-09-26 11:26 | General Surgery Progress Note ---
Assessment and Plan - Time spent with patient Time spent with patient: Less than 30 minutes (1) Abdominal mass Status: Acute Assessment and plan: Impression: Abdominal mass etiology unknown possibly from the stomach but cannot clearly determine. Plan: 1. Because of her elevated white count and her ascites go ahead and put her on low Mefoxin for right now. 2. We will repeat a CT scan of the abdomen and pelvis tomorrow with contrast nor see if we can identify where this mass may be coming from. 3. She may still need to have BE and a upper GI series is difficult to say. 4. Will get GI to see her for consideration of scopes in order to count to be sure what we might be dealing with. 5. Will consult oncology to look at possible tumor markers and get their opinion as well he might be looking at this time. 09/25/2016. Patient in general is doing better at this time although she is on her menstrual period at this point. Pain in her abdomen is much improved she is tolerating liquids without problems. Labs look good hematocrit is 29 at this time. Follow-up CT scan with contrast suggests that this is coming off probably the greater curvature distal part of the stomach. She is probably going require a partial gastrectomy or a wedge and this will wait for GI to scope her and see what is present internally at this time. Oncology is seen her and looks like we may be looking at a Gists tumor. 09/26/2016. Patient is stable at this time and labs look good with hematocrit 26 today potassium down little bit at 3.4. We will observe these for right now as we get things prepared. She does not have any tenderness or discomfort and tolerated liquids well. Planning EGD tomorrow to count to see how much involvement of the stomach we might have which will dictate hopefully what we can or cannot do at this point time. Will begin to look at the possibility of surgery on Tuesday to remove this mass. Current Visit: Yes Qualifiers: Abdominal location: epigastric Qualified Code(s): R19.06 - Epigastric swelling, mass or lump Subjective Patient reports: Present: feels better, pain is less, tolerating liquids well, bowel movement, afebrile Exam - Constitutional Vitals: Period Temp Pulse Resp BP Sys/Mccauley Pulse Ox Last 24 Hr 98.1 F-99.5 F 84-106 16-22 118-145/64-87 98-100 General appearance: no acute distress - Head Head exam: Present: normal inspection - ENT ENT exam: Present: normal exam - Neck Neck exam: Present: normal inspection - Respiratory Respiratory exam: Present: clear to auscultation bilaterally - Cardiovascular Cardiovascular exam: Present: RRR - GI/Abdominal GI/Abdominal exam: Present: hypoactive bowel sounds, soft. Absent: distended, mass, tenderness - Extremities Exam Extremities exam: Present: normal inspection - Neurological Exam Neurological exam: Present: alert, oriented X3, CN II-XII intact - Skin Skin exam: Present: normal color, warm, dry Results - Labs CBC & BMP: 09/26/16 05:14 09/26/16 05:14 Lab Results: I have reviewed the past 24 hour labs Quality Measures - VTE Contraindication to Pharmacological VTE Prophylaxis: Wafarin Use 1st Trimester of
--- NOTE | 2016-09-26 11:37 | Hospitalist Progress Note ---
Assessment and Plan (1) Urinary tract infection Status: Acute Assessment and plan: UA not very impressive But clinical symptoms match On cefoxitin Current Visit: Yes (2) Hypertension Status: Acute Assessment and plan: Losartan Current Visit: Yes (3) Leukocytosis Status: Acute Assessment and plan: Possibly secondary to uti Improving Current Visit: Yes (4) Abdominal mass Status: Acute Assessment and plan: Surgery, oncology and GI on board Plan for EGD tuesday Current Visit: Yes Qualifiers: Abdominal location: epigastric Qualified Code(s): R19.06 - Epigastric swelling, mass or lump Hospitalist: Subjective Interval history: No acute events overnight. Patient denies abdominal pain. Exam - Constitutional Vitals: Period Temp Pulse Resp BP Sys/Mccauley Pulse Ox Last 24 Hr 98.1 F-99.5 F 84-106 16-22 118-145/64-87 98-100 General appearance: over weight - Head Head exam: Present: normocephalic, atraumatic - Eye Eye exam: Present: EOMI Pupils: Present: CASANDRA - ENT ENT exam: Present: normal exam - Neck Neck exam: Present: normal inspection - Respiratory Respiratory exam: Present: clear to auscultation bilaterally. Absent: rhonchi, wheezes - Cardiovascular Cardiovascular exam: Present: regular rate and rhythm - GI/Abdominal GI/Abdominal exam: Present: normal bowel sounds, soft. Absent: tenderness, rebound - Extremities Exam Extremities exam: Present: normal inspection - Back Exam Back exam: Present: normal inspection - Neurological Exam Neurological exam: Present: alert, oriented X3 - Psychiatric Psychiatric exam: Present: normal affect, normal mood - Skin Skin exam: Present: warm, intact Results - Labs CBC & BMP: 09/26/16 05:14 09/26/16 05:14 Quality Measures - VTE Contraindication to Pharmacological VTE Prophylaxis: Wafarin Use 1st Trimester of
[2016-09-26] MEDS: POTASSIUM CITRATE 10 MEQ TABLET PO SCH ×2 (17:25→20:00)
[2016-09-27] MEDS: cefOXitin 1,000 MG in SODIUM CHLORIDE 0.9% 100 ML IV SCH ×4 (04:26→22:30)
[2016-09-27 05:16] LABS: Basophils # 0.1 10*3/uL (0.0-0.2); Basophils % 0.6 % (0.0-0.8); Eosinophils # 0.1 10*3/uL (0.0-0.87); Eosinophils % 0.8 % (0.00-10.9); Hematocrit 29.2 VOL% (35.7-47.0); Hemoglobin 9.6 GM/DL (12.0-16.0); Immature Granulocytes % 0.7 %; Immature Granulocytes Absolute 0.08 #; Lymphocytes # 2.9 10*3/uL (1.4-4.0); Lymphocytes % 26.4 % (21.3-54.2); Mean Corpuscular HGB Conc 32.9 GM/DL (32-36); Mean Corpuscular Hemoglobin 27 PG (27-34); Mean Corpuscular Volume 83.2 FL (87-102); Monocytes # 0.7 10*3/uL (0.11-0.8); Monocytes % 6.4 % (1.7-12.7); NRBC # 0.02 10*3/uL; Neutrophils % 65.1 % (38.7-73.9); Platelet Count 391 T/CUMM (130-400); Red Blood Count 3.51 MC/CUMM (3.8-5.5); Red Cell Distribution Width 15.2 % (9.3-17.3); White Blood Count 10.8 T/CUMM (4-12)
[2016-09-27 05:44] LABS: Calcium 8.8 MG/DL (8.5-10.1); Magnesium 2.4 MG/DL (1.8-2.4); Osmolality,Calculated 277.3 MOS/KG (273-304); Potassium 4.1 MMOL/L (3.5-5.1)
--- NOTE | 2016-09-27 09:03 | Hospitalist Progress Note ---
<Radha Jacobda - Last Filed: 09/27/16 09:00> Assessment and Plan (1) Leukocytosis Status: Acute Assessment and plan: WBCs are noted at 20.3. We will start Zosyn every 6 hours. 6/5-WBC is noted at 10.8. We will continue empiric antibiotic coverage prophylactically. Current Visit: Yes (2) Abdominal mass Status: Acute Assessment and plan: CT in of the abdomen and pelvis suggested a large had a road generously enhancing solid mass arising from the stomach as well as primary differential consideration including gastrointestinal stromal tumor. This is very concerning to me; however the patient needs a biopsy to confirm diagnosis. She is obviously overloaded with the new findings. We will consult surgery to evaluate. We will hydrate and manage pain and nausea. 6/5-EGD and biopsy scheduled for this morning. Oncology has evaluated the patient. We will await biopsy results for further direction.. Current Visit: Yes Qualifiers: Abdominal location: epigastric Qualified Code(s): R19.06 - Epigastric swelling, mass or lump Hospitalist: Subjective Interval history: Patient seen and examined; chart reviewed. No significant overnight events reported. The patient is n.p.o. pending EGD this a.m. She is in good spirits. Exam - Constitutional Vitals: Period Temp Pulse Resp BP Sys/Mccauley Pulse Ox Last 24 Hr 97.4 F-99.1 F 89-100 18-20 119-141/64-79 92-100 General appearance: normal weight, no acute distress - Head Head exam: Present: normal inspection, normocephalic, atraumatic - Eye Eye exam: Present: EOMI, conjunctival injection Pupils: Present: CASANDRA, normal accommodation - ENT ENT exam: Present: normal exam, normal external ear exam, normal oropharynx - Neck Neck exam: Present: normal inspection. Absent: lymphadenopathy, meningismus, thyromegaly - Respiratory Respiratory exam: Present: clear to auscultation bilaterally. Absent: rales, rhonchi, stridor, wheezes - Cardiovascular Cardiovascular exam: Present: regular rate and rhythm. Absent: carotid bruit, diastolic murmur, gallop, JVD, rubs, systolic murmur - GI/Abdominal GI/Abdominal exam: Present: normal bowel sounds, soft. Absent: firm, guarding, tenderness - Extremities Exam Extremities exam: Present: normal inspection, normal capillary refill, full ROM. Absent: edema - Back Exam Back exam: Present: normal inspection - Neurological Exam Neurological exam: Present: alert, oriented X3, CN II-XII intact - Psychiatric Psychiatric exam: Present: normal mood - Skin Skin exam: Present: normal color, warm, dry Results - Labs CBC & BMP: 09/27/16 04:49 09/27/16 04:49 Lab Results: I have reviewed the past 24 hour labs Quality Measures - VTE Contraindication to Pharmacological VTE Prophylaxis: Wafarin Use 1st Trimester of <Alessio Watts - Last Filed: 09/27/16 14:52> Assessment and Plan (1) Urinary tract infection Status: Acute Current Visit: Yes (2) Hypertension Status: Acute Current Visit: Yes (3) Leukocytosis Status: Acute Current Visit: Yes (4) Abdominal mass Status: Acute Current Visit: Yes Qualifiers: Abdominal location: epigastric Qualified Code(s): R19.06 - Epigastric swelling, mass or lump Hospitalist: Subjective Interval history: Patient seen and examined independently of ASSISTANT CHIEF NURSING OFFICER Cecil, agree with assessment and plan as documented. EGD today was relatively normal. Plan now is for surgical recession of mass. Patient reluctant about having the surgery, stressed the importance to her. She seems more amendable to surgery now. Surgery is scheduled for tomorrow. Exam - Constitutional Vitals: Period Temp Pulse Resp BP Sys/Mccauley Pulse Ox Last 24 Hr 97.4 F-99.1 F 90-103 16-25 103-141/52-088 92-100 Results - Labs CBC & BMP: 09/27/16 04:49 09/27/16 04:49
--- NOTE | 2016-09-27 11:33 | History and Physical Update ---
History and Physical Update - Physical Exam Mental Status: alert and oriented Heart: regular rate and rhythm Lung: clear to auscultation Abdomen: within normal limits Vitals: within normal limits
--- NOTE | 2016-09-27 11:42 | Operative Note ---
Date of procedure: 09/27/16 Pre-op diagnosis: Abnormal CT Procedure: EGD 36-year-old female with abnormal CT scan suggestive of abdominal mass of unclear etiology now for EGD to further evaluate. Informed symptoms obtained the patient. She was sedated with MAC anesthesia per anesthesia protocol. Patient placed left lateral decubitus position the Olympus flexible video upper endoscope was inserted into the oral cavity under direct vision the esophagus was intubated. Findings: Esophagus-normal proximal mid esophageal mucosa distal esophagus small hiatal hernia Stomach-normal insufflation normal mucosa to direct retroflexed views of the body fundus cardia and antrum the stomach. No masses are seen no extrinsic compression was identified. Pylorus normal Duodenum-normal bulb duodenum to the third portion of the duodenum. The procedure terminated placed our procedure well she discharged recovery in good condition. Postop diagnosis essentially normal EGD no obvious mass or mass-effect was identified. Will need to consider radiographic or surgical evaluation for tissue diagnosis. Anesthesia: MAC Surgeon / Physician: Dustin Tony Estimated blood loss: none Specimens: none sent Condition: stable Disposition: post procedure unit Results - Labs CBC & BMP: 09/27/16 04:49 09/27/16 04:49 Discharge Plan - Discharge Medications No Action Albuterol Sulfate [Ventolin HFA] 2 puffs INH Q4H PRN PRN Reason: Shortness Of Breath/Wheezing hydroCHLOROthiazide [Hydrochlorothiazide] 25 mg PO DAILY Losartan [Cozaar] 50 mg PO DAILY - Follow Up or Referral - Forms/Instructions
--- NOTE | 2016-09-27 11:50 | Anesthesia Post-Op ---
Anesthesia Post OP - Post Ansesthetic Evaluation Patient seen in post op: Yes Resp: within normal limits CV: within normal limits Mental: within normal limits Temp: within normal limits [id number]: within normal limits Nausea and Vomiting: within normal limits Pain: within normal limits
[2016-09-27] MEDS: POTASSIUM CITRATE 10 MEQ TABLET PO SCH ×3 (12:13→20:45)
--- NOTE | 2016-09-27 13:15 | General Surgery Progress Note ---
Assessment and Plan - Time spent with patient Time spent with patient: Less than 30 minutes (1) Abdominal mass Status: Acute Assessment and plan: Impression: Abdominal mass etiology unknown possibly from the stomach but cannot clearly determine. Plan: 1. Because of her elevated white count and her ascites go ahead and put her on low Mefoxin for right now. 2. We will repeat a CT scan of the abdomen and pelvis tomorrow with contrast nor see if we can identify where this mass may be coming from. 3. She may still need to have BE and a upper GI series is difficult to say. 4. Will get GI to see her for consideration of scopes in order to count to be sure what we might be dealing with. 5. Will consult oncology to look at possible tumor markers and get their opinion as well he might be looking at this time. 09/25/2016. Patient in general is doing better at this time although she is on her menstrual period at this point. Pain in her abdomen is much improved she is tolerating liquids without problems. Labs look good hematocrit is 29 at this time. Follow-up CT scan with contrast suggests that this is coming off probably the greater curvature distal part of the stomach. She is probably going require a partial gastrectomy or a wedge and this will wait for GI to scope her and see what is present internally at this time. Oncology is seen her and looks like we may be looking at a Gists tumor. 09/26/2016. Patient is stable at this time and labs look good with hematocrit 26 today potassium down little bit at 3.4. We will observe these for right now as we get things prepared. She does not have any tenderness or discomfort and tolerated liquids well. Planning EGD tomorrow to count to see how much involvement of the stomach we might have which will dictate hopefully what we can or cannot do at this point time. Will begin to look at the possibility of surgery on Tuesday to remove this mass. 09/27/2016. Patient has undergone the EGD and according Dr. Tony no mass was seen inside the stomach at this time. We know that she has this mass in the abdomen and probably surgical removal of the mass would be the ideal thing. If it is attached to the stomach been able to do a wedge resection of it would be ideal especially since nothing was seen inside the stomach at this time. I discussed findings with the patient at this time and indicated the idea and plans for surgery which we could do tomorrow. I know that we had mentioned this to her previously but this seemed to take her by surprise that we want to move along with surgery tomorrow. She is a little overwhelmed at this time and needs discussed with her family. I will go ahead and try to set her up for surgery tomorrow knowing that if she changes her mind at [facility] to cancel it. Current Visit: Yes Qualifiers: Abdominal location: epigastric Qualified Code(s): R19.06 - Epigastric swelling, mass or lump Subjective Patient reports: Present: feels better, tolerating liquids well, bowel movement , afebrile Exam - Constitutional Vitals: Period Temp Pulse Resp BP Sys/Mccauley Pulse Ox Last 24 Hr 97.4 F-99.1 F 90-103 16-25 103-141/52-088 92-100 General appearance: no acute distress - Head Head exam: Present: normal inspection - ENT ENT exam: Present: normal exam - Neck Neck exam: Present: normal inspection - Respiratory Respiratory exam: Present: clear to auscultation bilaterally, rales - Cardiovascular Cardiovascular exam: Present: RRR - GI/Abdominal GI/Abdominal exam: Present: hypoactive bowel sounds, soft. Absent: distended, tenderness - Extremities Exam Extremities exam: Present: normal inspection - Back Exam Back exam: Present: normal inspection - Neurological Exam Neurological exam: Present: alert, oriented X3, CN II-XII intact - Skin Skin exam: Present: normal color, warm, dry Results - Labs CBC & BMP: 09/27/16 04:49 09/27/16 04:49 Lab Results: I have reviewed the past 24 hour labs - Impressions EGD was performed and no mass was found in the stomach itself. Quality Measures - VTE Contraindication to Pharmacological VTE Prophylaxis: Wafarin Use 1st Trimester of
[2016-09-27] MEDS ORDERED: ceFAZolin 2,000 MG in PREMIX 1 EACH IV ONE (13:16)
[2016-09-27] MEDS ORDERED: MAGNESIUM CITRATE 300 ML BOTTLE PO ONE (13:20)
--- NOTE | 2016-09-27 14:29 | Hospitalist Progress Note ---
Assessment and Plan (1) Urinary tract infection Status: Acute Assessment and plan: UA not very impressive But clinical symptoms match On cefoxitin Current Visit: Yes (2) Hypertension Status: Acute Assessment and plan: Losartan Current Visit: Yes (3) Leukocytosis Status: Acute Assessment and plan: Possibly secondary to uti Improving Current Visit: Yes (4) Abdominal mass Status: Acute Assessment and plan: Surgery, oncology and GI on board Plan for EGD tuesday Current Visit: Yes Qualifiers: Abdominal location: epigastric Qualified Code(s): R19.06 - Epigastric swelling, mass or lump Hospitalist: Subjective Interval history: No acute events overnight. EGD today was relatively normal. Plan now is for surgical removal of mass. Patient was reluctant about surgery, long discussion with her about the importance of the surgery. She seems more amendable to the surgery now. Exam - Constitutional Vitals: Period Temp Pulse Resp BP Sys/Mccauley Pulse Ox Last 24 Hr 97.4 F-99.1 F 90-103 16-25 103-141/52-088 92-100 Results - Labs CBC & BMP: 09/27/16 04:49 09/27/16 04:49 Quality Measures - VTE Contraindication to Pharmacological VTE Prophylaxis: Wafarin Use 1st Trimester of
[2016-09-27] MEDS: hydroCHLOROthiazide 25 MG TABLET PO SCH (15:19)
[2016-09-27] MEDS: LOSARTAN 50 MG TABLET PO SCH (15:20)
[2016-09-27] MEDS: clonazePAM 0.5 MG TABLET PO PRN (22:31)
[2016-09-28] MEDS: cefOXitin 1,000 MG in SODIUM CHLORIDE 0.9% 100 ML IV SCH ×3 (05:30→18:53)
[2016-09-28] MEDS: clonazePAM 0.5 MG TABLET PO PRN (05:31)
[2016-09-28] MEDS ORDERED: LORazepam 2 MG/1 ML VIAL IV ONE (08:14)
[2016-09-28 08:23] LABS: Basophils # 0.1 10*3/uL (0.0-0.2); Basophils % 0.6 % (0.0-0.8); Eosinophils # 0.1 10*3/uL (0.0-0.87); Eosinophils % 1.2 % (0.00-10.9); Hematocrit 31.7 VOL% (35.7-47.0); Hemoglobin 10.2 GM/DL (12.0-16.0); Immature Granulocytes % 0.8 %; Immature Granulocytes Absolute 0.09 #; Lymphocytes # 2.5 10*3/uL (1.4-4.0); Lymphocytes % 22.4 % (21.3-54.2); Mean Corpuscular HGB Conc 32.2 GM/DL (32-36); Mean Corpuscular Hemoglobin 27 PG (27-34); Mean Corpuscular Volume 82.6 FL (87-102); Mean Platelet Volume 10.3 FL (9.6-12.0); Monocytes # 0.6 10*3/uL (0.11-0.8); Monocytes % 5.4 % (1.7-12.7); NRBC # 0.02 10*3/uL; Neutrophils # 7.7 10*3/uL (1.4-7.4); Neutrophils % 69.6 % (38.7-73.9); Platelet Count 396 T/CUMM (130-400); Red Blood Count 3.84 MC/CUMM (3.8-5.5); Red Cell Distribution Width 15.2 % (9.3-17.3); White Blood Count 11.1 T/CUMM (4-12)
--- NOTE | 2016-09-28 08:35 | Hospitalist Progress Note ---
<Radha Jacobda - Last Filed: 09/28/16 08:36> Assessment and Plan (1) Leukocytosis Status: Acute Assessment and plan: WBCs are noted at 20.3. We will start Zosyn every 6 hours. 6/5-WBC is noted at 10.8. We will continue empiric antibiotic coverage prophylactically. 6/6-WBCs have normalized at 11.4; continue empiric antibiotic coverage prophylactically for preop purposes Current Visit: Yes (2) Abdominal mass Status: Acute Assessment and plan: CT in of the abdomen and pelvis suggested a large had a road generously enhancing solid mass arising from the stomach as well as primary differential consideration including gastrointestinal stromal tumor. This is very concerning to me; however the patient needs a biopsy to confirm diagnosis. She is obviously overloaded with the new findings. We will consult surgery to evaluate. We will hydrate and manage pain and nausea. 6/5-EGD and biopsy scheduled for this morning. Oncology has evaluated the patient. We will await biopsy results for further direction.. 6/-EGD was performed on yesterday. The mass was not visible at the time. Dr. Jackson saw the patient on yesterday; I agree with the plan for tumor resection and biopsy this morning. Spoke with the patient in great detail regarding the procedure; the patient verbalizes understanding however she remains noticeably anxious. Current Visit: Yes Qualifiers: Abdominal location: epigastric Qualified Code(s): R19.06 - Epigastric swelling, mass or lump Hospitalist: Subjective Interval history: Patient seen and examined; chart reviewed. Patient is scheduled for tumor resection this p.m. per Dr. Young. Exam - Constitutional Vitals: Period Temp Pulse Resp BP Sys/Mccauley Pulse Ox Last 24 Hr 97.6 F-99.1 F 90-103 16-25 103-166/52-088 96-99 General appearance: normal weight, no acute distress - Head Head exam: Present: normal inspection, normocephalic, atraumatic - Eye Eye exam: Present: EOMI, conjunctival injection Pupils: Present: CASANDRA, normal accommodation - ENT ENT exam: Present: normal exam, normal external ear exam, normal oropharynx - Neck Neck exam: Present: normal inspection. Absent: lymphadenopathy, meningismus, thyromegaly - Respiratory Respiratory exam: Present: clear to auscultation bilaterally. Absent: rales, rhonchi, stridor, wheezes - Cardiovascular Cardiovascular exam: Present: regular rate and rhythm. Absent: carotid bruit, diastolic murmur, gallop, JVD, rubs, systolic murmur - GI/Abdominal GI/Abdominal exam: Present: normal bowel sounds, soft. Absent: firm, guarding, tenderness - Extremities Exam Extremities exam: Present: normal inspection, normal capillary refill, full ROM , edema - Back Exam Back exam: Present: normal inspection - Neurological Exam Neurological exam: Present: alert, oriented X3, CN II-XII intact - Psychiatric Psychiatric exam: Present: anxious - Skin Skin exam: Present: normal color, warm, dry Results - Labs CBC & BMP: 09/28/16 08:12 09/27/16 04:49 Lab Results: I have reviewed the past 24 hour labs Quality Measures - VTE Contraindication to Pharmacological VTE Prophylaxis: Wafarin Use 1st Trimester of <Alessio Watts - Last Filed: 09/28/16 14:20> Assessment and Plan (1) Urinary tract infection Status: Acute Current Visit: Yes (2) Hypertension Status: Acute Current Visit: Yes (3) Leukocytosis Status: Acute Current Visit: Yes (4) Abdominal mass Status: Acute Current Visit: Yes Qualifiers: Abdominal location: epigastric Qualified Code(s): R19.06 - Epigastric swelling, mass or lump Hospitalist: Subjective Interval history: Patient seen and examined independently of SECRETARIAL TEACHER Cecil, agree with assessment and plan as documented. Patient anxious about surgery. Denies pain. Exam - Constitutional Vitals: Period Temp Pulse Resp BP Sys/Mccauley Pulse Ox Last 24 Hr 97.6 F-99.1 F 90-103 18-20 115-166/71-94 96-99 Results - Labs CBC & BMP: 09/28/16 08:12 09/28/16 08:12
[2016-09-28 08:51] LABS: Magnesium 2.4 MG/DL (1.8-2.4); Osmolality,Calculated 274.5 MOS/KG (273-304); Potassium 4.1 MMOL/L (3.5-5.1)
--- NOTE | 2016-09-28 10:21 | Gastrointestinal Progress Note ---
<Tati Bai - Last Filed: 09/28/16 10:16> Assessment and Plan (1) Abdominal mass Status: Acute Assessment and plan: 09/28-EGD findings noted. For surgical resection of mass today with Dr Young. Plan and addendum to follow by Dr Tony. Current Visit: Yes Qualifiers: Abdominal location: epigastric Qualified Code(s): R19.06 - Epigastric swelling, mass or lump Gastroenterology - PN: Subj Interval history: CC: Abnormal CT Patient is seen awake and alert lying in bed. Family at bedside. States she had a night. She has been seen by Dr. Young this morning and plans noted for surgical resection of abdominal mass later today. Abdomen soft, nontender. Denies any nausea vomiting. Afebrile. WBCs unremarkable 11,000. ROS: Denies SOB or chest pain Exam (Progress Note) - Constitutional Vitals: Period Temp Pulse Resp BP Sys/Mccauley Pulse Ox Last 24 Hr 97.6 F-99.1 F 90-103 16-25 103-166/52-088 96-99 General appearance: normal weight, no acute distress - Head Head exam: Present: normal inspection, normocephalic - Eye Eye exam: Present: other (lids and conjunctiva unremarakble). Absent: scleral icterus - ENT ENT exam: Present: normal exam, normal oropharynx - Neck Neck exam: Present: normal inspection - Respiratory Respiratory exam: Present: clear to auscultation bilaterally. Absent: rales, rhonchi, wheezes - Cardiovascular Cardiovascular exam: Present: regular rate and rhythm. Absent: diastolic murmur , JVD, systolic murmur - GI/Abdominal GI/Abdominal exam: Present: normal bowel sounds, soft. Absent: ascites, distended, mass, organomegaly, tenderness - Extremities Exam Extremities exam: Present: normal inspection, full ROM - Back Exam Back exam: Present: normal inspection - Neurological Exam Neurological exam: Present: alert, oriented X3 - Psychiatric Psychiatric exam: Present: normal affect, normal mood - Skin Skin exam: Present: normal color, warm, dry Results - Labs CBC & BMP: 09/28/16 08:12 09/28/16 08:12 Lab Results: I have reviewed the past 24 hour labs <Dustin Tony - Last Filed: 09/28/16 18:57> Exam (Progress Note) - Constitutional Vitals: Period Temp Pulse Resp BP Sys/Mccauley Pulse Ox Last 24 Hr 97.0 F-98.9 F 92-114 12-22 92-166/48-94 24-100 Results - Labs CBC & BMP: 09/28/16 16:58 09/28/16 08:12
[2016-09-28 11:06] LABS: Cancer Antigen 125 34 U/mL (<46); Cancer Antigen 15-3 12 U/mL (<30)
[2016-09-28] MEDS ORDERED: BUPIVACAINE MPF 0.25% /EPI 30 ML VIAL ONE (12:07)
[2016-09-28] MEDS ORDERED: TISSUE ADHESIVE 1 EACH APPLICATOR TOP ONE (12:07)
[2016-09-28] MEDS ORDERED: BUPIVACAINE LIPOSOMAL 20 ML/266 MG VIAL ONE (13:41)
[2016-09-28] MEDS ORDERED: MICROFIBRILLAR COLLAGEN POWDER 1 GM CAN TOP ONE (14:10)
[2016-09-28 14:47] LABS: Apearance,Urine CLEAR (Clear); Bilirubin,Urine Negative (Negative); Blood, Urine Negative (Negative); Glucose,Urine (UA) Negative (Negative); Ketones,Urine 20 mg/dL (Negative); Mucus,Urine Occasional /LPF (Occasional); Nitrite,Urine Negative (Negative); Protein,Urine Negative; RBC,Urine <1 /HPF (0-4); Squamous Epithelial Cell,Urine Occasional /HPF (0-10); Urine Color Yellow (Yellow); Urine Specific Gravity 1.018 (1.001-1.035); Urine Urobilinogen < 2.0 EU/DL (0.2-1.0); WBC,Urine 1 /HPF (0-6)
[2016-09-28] MEDS ORDERED: fentaNYL 100 MCG/2 ML VIAL ONE ×2 (15:00→16:40)
[2016-09-28] MEDS ORDERED: MIDAZOLAM 2 MG/2 ML VIAL ONE (15:00)
[2016-09-28] MEDS: POTASSIUM CITRATE 10 MEQ TABLET PO SCH ×3 (15:15→21:15)
[2016-09-28] MEDS: LOSARTAN 50 MG TABLET PO SCH (15:27)
[2016-09-28] MEDS: hydroCHLOROthiazide 25 MG TABLET PO SCH (15:27)
--- NOTE | 2016-09-28 15:54 | Operative Note ---
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 With partial omentectomy Surgeon Dr. Young Hoseman Dea Presley, GLOBAL COMMODITY MANAGER ACNP Brief history: 36-year-old -[place] female who came into the emergency room because of abdominal pain of sudden onset. Her workup revealed a large mass in the abdomen etiology of which was unclear. Some additional CT suggested may be coming off the stomach. EGD though did not show any masses in the stomach at this time. We felt that we need to go ahead and try to remove this mass since she had some ascites associated with it. Procedure: With patient supine position prepped and draped in sterile fashion timeout and antibiotics completed we approach the area just above the umbilicus were infiltrated with local anesthetic and made an incision to the skin subtenons tissue down to the level of fascia. Incised portion of the fascia and elevate peritoneum opened it up and placed a 11 mm trocar in and instilled into the abdomen 3 L CO2. We put our scope in see a large amount of bloody ascites at this time but could not clearly identify the mass or anything that was present at this point. We then placed a 5 mm trocar in the anterior axillary line on the right side and then we did several aspirations for cultures of the ascitic fluid and fluid for cytology out around the area of the liver. Once we did that I attempted to manipulate the omentum to see the mass but could never really see the mass effectively at this time. We felt that the only way we can barely deal with this large mass was to clearly O do an open procedure and remove it. At that point we terminated the laparoscopic procedure and began to plan an open We went ahead and took a knife made incision from the xiphoid to the level of the umbilicus with the knife carried down through the skin subtenons tissue bleeding controlled electrocauterization. We carefully dissected on down to the fascia and then incised the fascia the length of the incision and opened the peritoneum without difficulty. We encountered a large amount of bloody ascites which we aspirated out in order to not have it spilling all over us at this time. We did that this allowed us to get her hand again and begin to mobilize the omentum. At that point we found a large mass in the left upper quadrant underneath the stomach and above the colon. We were able to mobilize that up a little bit and then would begin to go across along the edge of the tumor freeing up this omentum that was over the top of it in order to get it clearly free. We went inferiorly going across with Dinah clamps and ties of 2- 0 Ethibond in order to mobilize this portion of the colon away from the tumor itself. This was a portion of transverse colon in this area. Once we had mobilized the colon free this allowed us to bring the tumor up a little bit easier. And we could get underneath it. We continued careful dissection using Dinah clamps to tie off the omentum with 2-0 Ethibond ties in order to control any bleeding. We did get into a portion of the tumor that we took and sent to pathology. That point we get to dissecting the omentum from the portion of the mass that was right at the stomach using Dinah clamps to divide this area. Once we had those tied and secured we could see where this tumor was coming off the greater curvature of the stomach. This allowed us to take a TA 90 stapler across this area and fired and then divided that portion of the stomach wedge in this area off the stomach itself. Once we did that in the stomach and the mass was free were able to send the mass to pathology. With the mass out at this point we tied the rest of the Dinah clamps to secure them with 2-0 Ethibond ties to ensure that we had all bleeding under control. We oversewed portion stomach with seromuscular 3-0 Ethibond with the staple line was edges to secure that area. Oversewed a portion of the colon with 3-0 Ethibond seromuscular sutures to oversew this area just to be sure that it was secured. We then had the omentum free at this point and elected to use the harmonic scalpel to go across the distal part of the omentum that was right at the lower edge of the mass and remove it and we removed a portion of the omentum that was near the stomach portion just to be sure that we had this area clear. No other masses were noted the spleen look good liver look good with no evidence of any masses in them at this time. We ended up running the colon which found no lesions in it all way down to the rectum. We next ran the small bowel and it was clear to is no lesions in it or in the mesentery at this time. Could not palpate any lymph nodes at this time. We ran the stomach and it appeared to be normal with no evidence of any lesions in it. With that and NG tube in good position then we washed out the abdomen with large amounts of saline try to clean out all of the areas in the 4 quadrants of the abdomen. Once that was completed I like to make a separate stab wound in the left side later drain down in the pelvis and then used a trocar site on the right side to place a drain underneath the liver on top of the stomach used for security purposes of monitoring. Once these were in place and secured with 2-0 nylon. We then laid the old small bowel back into the pelvis laid the omentum down into it and then begin to close the abdomen. We closed the abdomen by closing the peritoneum with a running 0 Vicryl suture to close the fascia with a running #1 Maxon. We then washed out subtenons tissue and closed a running 30 Vicryl Close the skin with skin clips with some vertical mattress of 3-0 nylon. Secured the drains in with some 2-0 nylon. With that completed then bulky dressing was applied patient was then taken recovery room. Estimated blood loss difficult to assess due to the ascites will consider thousand cc Sponge count correct 2 Drains 2 #10 Bubba-Cuadra Complications none Condition stable satisfactory Anesthesia: GETA, local (0.25% Marcaine with epinephrine mixed [id number] 1% Xylocaine plain and X Joe) Surgeon / Physician: Brennen Young Hoseman: Dea Presley Estimated blood loss: other (Thousand cc) Specimens: other (Tumor and ascites) Condition: stable Disposition: ICU Results - Labs CBC & BMP: 09/28/16 08:12 09/28/16 08:12 Discharge Plan - Discharge Medications No Action Albuterol Sulfate [Ventolin HFA] 2 puffs INH Q4H PRN PRN Reason: Shortness Of Breath/Wheezing hydroCHLOROthiazide [Hydrochlorothiazide] 25 mg PO DAILY Losartan [Cozaar] 50 mg PO DAILY - Follow Up or Referral - Forms/Instructions
[2016-09-28] MEDS ORDERED: HYDROmorphone PCA 30 MG/30 ML SYRINGE IV ONE (16:23)
[2016-09-28] MEDS: HYDROmorphone PCA 30 MG/30 ML SYRINGE IV SCH (16:26)
--- NOTE | 2016-09-28 16:27 | Anesthesia Post-Op ---
Anesthesia Post OP - Post Ansesthetic Evaluation Patient seen in post op: Yes Resp: within normal limits CV: within normal limits Mental: within normal limits Temp: within normal limits [id number]: within normal limits Nausea and Vomiting: within normal limits Pain: within normal limits Other:: to icu for observation
[2016-09-28] MEDS ORDERED: DESFLURANE 1 UNIT/15 MINUTE INH ONE (16:40)
[2016-09-28] MEDS: SODIUM CHLORIDE 0.9% 1,000 ML IV SCH (17:05)
[2016-09-28] MEDS: DEXTROSE 5% NACL 0.45% 1,000 ML IV SCH (17:05)
[2016-09-28 17:16] LABS: Hematocrit 38.1 VOL% (35.7-47.0); Hemoglobin 12.6 GM/DL (12.0-16.0)
[2016-09-28] MEDS: KETOROLAC 15 MG/1 ML VIAL IV SCH ×2 (17:37→22:38)
[2016-09-28] MEDS: ceFAZolin 2,000 MG in PREMIX 1 EACH IV SCH (22:41)
[2016-09-28 23:00] LABS: Hematocrit 33.5 VOL% (35.7-47.0); Hemoglobin 11.2 GM/DL (12.0-16.0)
[2016-09-29] MEDS: cefOXitin 1,000 MG in SODIUM CHLORIDE 0.9% 100 ML IV SCH ×4 (00:45→18:36)
[2016-09-29] MEDS: KETOROLAC 15 MG/1 ML VIAL IV SCH ×4 (03:53→22:13)
[2016-09-29 05:15] LABS: Basophils % 0.3 % (0.0-0.8); Eosinophils % 0.3 % (0.00-10.9); Hemoglobin 10.6 GM/DL (12.0-16.0); Immature Granulocytes % 0.4 %; Immature Granulocytes Absolute 0.05 #; Lymphocytes # 2.1 10*3/uL (1.4-4.0); Lymphocytes % 17.9 % (21.3-54.2); Mean Corpuscular HGB Conc 33.1 GM/DL (32-36); Mean Corpuscular Hemoglobin 28 PG (27-34); Mean Corpuscular Volume 85.3 FL (87-102); Mean Platelet Volume 10.1 FL (9.6-12.0); Monocytes # 1.1 10*3/uL (0.11-0.8); Monocytes % 9.2 % (1.7-12.7); Neutrophils # 8.4 10*3/uL (1.4-7.4); Neutrophils % 71.9 % (38.7-73.9); Platelet Count 283 T/CUMM (130-400); Red Blood Count 3.75 MC/CUMM (3.8-5.5); Red Cell Distribution Width 14.8 % (9.3-17.3); White Blood Count 11.7 T/CUMM (4-12)
[2016-09-29 05:58] LABS: Alanine Aminotransferase 18 U/L (13-56); Albumin 2.6 G/DL (3.4-5.0); Alkaline Phosphatase 55 U/L (45-117); Aspartate Amino Transferase 11 U/L (0-37); Bilirubin,Total < 0.39 MG/DL (0.2-1.0); Blood Urea Nitrogen 10 MG/DL (7-18); Calcium 7.1 MG/DL (8.5-10.1); Glucose 115 MG/DL (74-106); Osmolality,Calculated 278.4 MOS/KG (273-304); Potassium 4.4 MMOL/L (3.5-5.1); Sodium 140 MMOL/L (136-145); Total Protein 5.5 G/DL (6.4-8.3)
[2016-09-29] MEDS: ceFAZolin 2,000 MG in PREMIX 1 EACH IV SCH ×3 (06:03→22:19)
[2016-09-29] MEDS: DEXTROSE 5% NACL 0.45% 1,000 ML IV SCH ×2 (06:12→20:41)
--- NOTE | 2016-09-29 08:29 | Hospitalist Progress Note ---
Assessment and Plan - Time spent with patient Time spent with patient: Greater than 30 minutes (1) Abdominal mass Status: Acute Assessment and plan: POD#1 s/p open lap with excision of stomach mass/partial gastrectomy. Hb stable. Hemodynamically stable. Path pending. Stable to transfer to floor from my standpoint; will defer this to surgery. Current Visit: Yes Qualifiers: Abdominal location: epigastric Qualified Code(s): R19.06 - Epigastric swelling, mass or lump (2) Elevated WBC count Status: Resolved Current Visit: Yes (3) Hypertension Status: Acute Current Visit: Yes Qualifiers: Hypertension type: essential hypertension Qualified Code(s): I10 - Essential (primary) hypertension Hospitalist: Subjective Interval history: POD#1. Placed in ICU post-op for monitoring. Stable. Pt reports good pain control with ALTERNATIVE ENERGY TECHNICIAN. No flatus/BM Exam - Constitutional Vitals: Period Temp Pulse Resp BP Sys/Mccauley Pulse Ox Last 24 Hr 97.0 F-99.3 F 91-122 12-22 89-128/48-83 24-100 General appearance: no acute distress - Head Head exam: Present: normal inspection, atraumatic - Eye Eye exam: Present: EOMI Pupils: Present: CASANDRA - ENT ENT exam: Present: other (NGT in place) - Neck Neck exam: Present: normal inspection - Respiratory Respiratory exam: Present: clear to auscultation bilaterally - Cardiovascular Cardiovascular exam: Present: regular rate and rhythm - GI/Abdominal GI/Abdominal exam: Present: hypoactive bowel sounds, tenderness, other ( surgical dressing and LINDA drain in place. Appropriate post op tenderness) - Extremities Exam Extremities exam: Present: normal inspection, full ROM - Neurological Exam Neurological exam: Present: alert - Psychiatric Psychiatric exam: Present: normal affect - Skin Skin exam: Present: normal color, warm, dry Results - Labs CBC & BMP: 09/29/16 04:47 09/29/16 04:47 Quality Measures - VTE Contraindication to Pharmacological VTE Prophylaxis: Wafarin Use 1st Trimester of
--- NOTE | 2016-09-29 08:55 | General Surgery Progress Note ---
Assessment and Plan - Time spent with patient Time spent with patient: Less than 30 minutes (1) Abdominal mass Status: Acute Assessment and plan: Impression: Abdominal mass etiology unknown possibly from the stomach but cannot clearly determine. Plan: 1. Because of her elevated white count and her ascites go ahead and put her on low Mefoxin for right now. 2. We will repeat a CT scan of the abdomen and pelvis tomorrow with contrast nor see if we can identify where this mass may be coming from. 3. She may still need to have BE and a upper GI series is difficult to say. 4. Will get GI to see her for consideration of scopes in order to count to be sure what we might be dealing with. 5. Will consult oncology to look at possible tumor markers and get their opinion as well he might be looking at this time. 09/25/2016. Patient in general is doing better at this time although she is on her menstrual period at this point. Pain in her abdomen is much improved she is tolerating liquids without problems. Labs look good hematocrit is 29 at this time. Follow-up CT scan with contrast suggests that this is coming off probably the greater curvature distal part of the stomach. She is probably going require a partial gastrectomy or a wedge and this will wait for GI to scope her and see what is present internally at this time. Oncology is seen her and looks like we may be looking at a Gists tumor. 09/26/2016. Patient is stable at this time and labs look good with hematocrit 26 today potassium down little bit at 3.4. We will observe these for right now as we get things prepared. She does not have any tenderness or discomfort and tolerated liquids well. Planning EGD tomorrow to count to see how much involvement of the stomach we might have which will dictate hopefully what we can or cannot do at this point time. Will begin to look at the possibility of surgery on Tuesday to remove this mass. 09/27/2016. Patient has undergone the EGD and according Dr. Tony no mass was seen inside the stomach at this time. We know that she has this mass in the abdomen and probably surgical removal of the mass would be the ideal thing. If it is attached to the stomach been able to do a wedge resection of it would be ideal especially since nothing was seen inside the stomach at this time. I discussed findings with the patient at this time and indicated the idea and plans for surgery which we could do tomorrow. I know that we had mentioned this to her previously but this seemed to take her by surprise that we want to move along with surgery tomorrow. She is a little overwhelmed at this time and needs discussed with her family. I will go ahead and try to set her up for surgery tomorrow [facility] 09/29/2016 Patient is afebrile and awake and alert at this time. Minimal NG tube drainage at this point. The abdomen is soft not significantly distended with a few bowel sounds. The incisions clean and dry and the drains are draining 1 decreasing significantly and other one slowly decreasing but moderate amount. Labs look stable at this time with hematocrit of 31. At this point with a blood pressure little low will count to keep her here the 24 hours try to sit her up and see how she does. If she does well and her blood counts remained stable hopefully we could move to the floor tomorrow. Current Visit: Yes Qualifiers: Abdominal location: epigastric Qualified Code(s): R19.06 - Epigastric swelling, mass or lump Subjective Patient reports: Present: no new complaints, pain is less, no bowel movement, afebrile Exam - Constitutional Vitals: Period Temp Pulse Resp BP Sys/Mccauley Pulse Ox Last 24 Hr 97.0 F-99.3 F 91-122 12-22 89-128/48-83 24-100 General appearance: mild distress - Head Head exam: Present: normal inspection - Neck Neck exam: Present: normal inspection - Respiratory Respiratory exam: Present: clear to auscultation bilaterally, rales - Cardiovascular Cardiovascular exam: Present: RRR - GI/Abdominal GI/Abdominal exam: Present: distended (Mild), hypoactive bowel sounds, soft, other (LINDA drainage is decreasing) - Extremities Exam Extremities exam: Present: normal inspection - Back Exam Back exam: Present: normal inspection - Neurological Exam Neurological exam: Present: alert, oriented X3, CN II-XII intact - Skin Skin exam: Present: normal color, warm, dry Results - Labs CBC & BMP: 09/29/16 04:47 09/29/16 04:47 Lab Results: I have reviewed the past 24 hour labs Quality Measures - VTE Contraindication to Pharmacological VTE Prophylaxis: Wafarin Use 1st Trimester of
[2016-09-29] MEDS: POTASSIUM CITRATE 10 MEQ TABLET PO SCH ×3 (09:46→20:21)
[2016-09-29] MEDS: hydroCHLOROthiazide 25 MG TABLET PO SCH (09:46)
[2016-09-29] MEDS: LOSARTAN 50 MG TABLET PO SCH (09:46)
[2016-09-29] MEDS: PANTOPRAZOLE 40 MG VIAL IV SCH (10:04)
[2016-09-29] MEDS: SODIUM CHLORIDE 0.9% 1,000 ML IV SCH ×2 (10:10→17:39)
[2016-09-29] MEDS ORDERED: PROPOFOL 200 MG/20 ML VIAL IV ONE (12:33)
[2016-09-29] MEDS ORDERED: PHENYLEPHRINE 1 MG/10 ML SYRINGE IV ONE (12:33)
[2016-09-29] MEDS ORDERED: ROCURONIUM 100 MG/10 ML VIAL IV ONE (12:33)
[2016-09-29] MEDS ORDERED: SUCCINYLCHOLINE 200 MG/10 ML VIAL ONE (12:33)
[2016-09-29] MEDS ORDERED: LIDOCAINE 2% 5 ML VIAL ONE (12:33)
[2016-09-29] MEDS ORDERED: NEOSTIGMINE 10 MG/10 ML VIAL ONE (12:33)
[2016-09-29] MEDS ORDERED: ONDANSETRON 4 MG/2 ML VIAL ONE (12:33)
[2016-09-29] MEDS ORDERED: GLYCOPYRROLATE 0.4 MG/2 ML VIAL ONE (12:33)
[2016-09-29] MEDS ORDERED: SODIUM CHLORIDE 0.9% 1,000 ML IV ONE (14:13)
[2016-09-29] MEDS: HYDROmorphone PCA 30 MG/30 ML SYRINGE IV SCH (16:00)
[2016-09-30] MEDS: cefOXitin 1,000 MG in SODIUM CHLORIDE 0.9% 100 ML IV SCH ×5 (00:28→23:30)
[2016-09-30] MEDS: KETOROLAC 15 MG/1 ML VIAL IV SCH ×4 (04:27→21:13)
[2016-09-30] MEDS: ceFAZolin 2,000 MG in PREMIX 1 EACH IV SCH ×2 (05:34→14:52)
[2016-09-30] MEDS: SODIUM CHLORIDE 0.9% 1,000 ML IV SCH ×2 (05:56→13:59)
[2016-09-30 06:52] LABS: Alanine Aminotransferase 13 U/L (13-56); Albumin 2.4 G/DL (3.4-5.0); Alkaline Phosphatase 51 U/L (45-117); Aspartate Amino Transferase 13 U/L (0-37); Bilirubin,Total < 0.39 MG/DL (0.2-1.0); Blood Urea Nitrogen 6 MG/DL (7-18); Calcium 7.5 MG/DL (8.5-10.1); Glucose 105 MG/DL (74-106); Magnesium 1.9 MG/DL (1.8-2.4); Osmolality,Calculated 278.3 MOS/KG (273-304); Potassium 3.9 MMOL/L (3.5-5.1); Sodium 141 MMOL/L (136-145); Total Protein 4.9 G/DL (6.4-8.3)
[2016-09-30 06:58] LABS: Basophils # 0.1 10*3/uL (0.0-0.2); Basophils % 0.6 % (0.0-0.8); Eosinophils # 0.2 10*3/uL (0.0-0.87); Eosinophils % 1.7 % (0.00-10.9); Hematocrit 31.5 VOL% (35.7-47.0); Hemoglobin 9.8 GM/DL (12.0-16.0); Immature Granulocytes % 1.1 %; Lymphocytes # 1.6 10*3/uL (1.4-4.0); Lymphocytes % 17.3 % (21.3-54.2); Mean Corpuscular HGB Conc 31.1 GM/DL (32-36); Mean Corpuscular Hemoglobin 28 PG (27-34); Mean Corpuscular Volume 90.5 FL (87-102); Monocytes # 0.8 10*3/uL (0.11-0.8); Monocytes % 8.2 % (1.7-12.7); Neutrophils # 6.6 10*3/uL (1.4-7.4); Neutrophils % 71.1 % (38.7-73.9); Platelet Count 236 T/CUMM (130-400); Red Blood Count 3.48 MC/CUMM (3.8-5.5); Red Cell Distribution Width 15.1 % (9.3-17.3); White Blood Count 9.3 T/CUMM (4-12)
--- NOTE | 2016-09-30 08:32 | General Surgery Progress Note ---
Assessment and Plan - Time spent with patient Time spent with patient: Less than 30 minutes (1) Abdominal mass Status: Acute Assessment and plan: Impression: Abdominal mass etiology unknown possibly from the stomach but cannot clearly determine. Plan: 1. Because of her elevated white count and her ascites go ahead and put her on low Mefoxin for right now. 2. We will repeat a CT scan of the abdomen and pelvis tomorrow with contrast nor see if we can identify where this mass may be coming from. 3. She may still need to have BE and a upper GI series is difficult to say. 4. Will get GI to see her for consideration of scopes in order to count to be sure what we might be dealing with. 5. Will consult oncology to look at possible tumor markers and get their opinion as well he might be looking at this time. 09/25/2016. Patient in general is doing better at this time although she is on her menstrual period at this point. Pain in her abdomen is much improved she is tolerating liquids without problems. Labs look good hematocrit is 29 at this time. Follow-up CT scan with contrast suggests that this is coming off probably the greater curvature distal part of the stomach. She is probably going require a partial gastrectomy or a wedge and this will wait for GI to scope her and see what is present internally at this time. Oncology is seen her and looks like we may be looking at a Gists tumor. 09/26/2016. Patient is stable at this time and labs look good with hematocrit 26 today potassium down little bit at 3.4. We will observe these for right now as we get things prepared. She does not have any tenderness or discomfort and tolerated liquids well. Planning EGD tomorrow to count to see how much involvement of the stomach we might have which will dictate hopefully what we can or cannot do at this point time. Will begin to look at the possibility of surgery on Tuesday to remove this mass. 09/27/2016. Patient has undergone the EGD and according Dr. Tony no mass was seen inside the stomach at this time. We know that she has this mass in the abdomen and probably surgical removal of the mass would be the ideal thing. If it is attached to the stomach been able to do a wedge resection of it would be ideal especially since nothing was seen inside the stomach at this time. I discussed findings with the patient at this time and indicated the idea and plans for surgery which we could do tomorrow. I know that we had mentioned this to her previously but this seemed to take her by surprise that we want to move along with surgery tomorrow. She is a little overwhelmed at this time and needs discussed with her family. I will go ahead and try to set her up for surgery tomorrow knowing that [facility] 09/29/2016 Patient is afebrile and awake and alert at this time. Minimal NG tube drainage at this point. The abdomen is soft not significantly distended with a few bowel sounds. The incisions clean and dry and the drains are draining 1 decreasing significantly and other one slowly decreasing but moderate amount. Labs look stable at this time with hematocrit of 31. At this point with a blood pressure little low will count to keep her here the 24 hours try to sit her up and see how she does. If she does well and her blood counts remained stable hopefully we could move to the floor tomorrow. 09/30/2016. Patient is stable good urine output this morning and LINDA drainage that is slowly decreasing. Pathology is still pending. NG tube drainage is minimal and on exam she has bowel sounds present even though she has not had any flatus or bowel movement. We will go ahead and pulled the NG tube today probably moved to the floor so we can ambulate her little bit better. Labs look stable hematocrits 31. Will just keep her on sips of water for now possibly some clear liquids tomorrow Current Visit: Yes Qualifiers: Abdominal location: epigastric Qualified Code(s): R19.06 - Epigastric swelling, mass or lump Subjective Patient reports: Present: no new complaints, pain is less, no bowel movement, afebrile Exam - Constitutional Vitals: Period Temp Pulse Resp BP Sys/Mccauley Pulse Ox Last 24 Hr 97.6 F-98.9 F 82-101 10-29 91-146/47-88 98-100 General appearance: mild distress - Head Head exam: Present: normal inspection - ENT ENT exam: Present: normal exam - Neck Neck exam: Present: normal inspection - Respiratory Respiratory exam: Present: clear to auscultation bilaterally, rales - Cardiovascular Cardiovascular exam: Present: RRR - GI/Abdominal GI/Abdominal exam: Present: hypoactive bowel sounds, soft, other (Incision healing well clean and dry. LINDA drainage is decreasing) - Extremities Exam Extremities exam: Present: normal inspection - Back Exam Back exam: Present: normal inspection - Neurological Exam Neurological exam: Present: alert, oriented X3, CN II-XII intact - Skin Skin exam: Present: normal color, dry Results - Labs CBC & BMP: 09/30/16 05:53 09/30/16 05:53 Lab Results: I have reviewed the past 24 hour labs Quality Measures - VTE Contraindication to Pharmacological VTE Prophylaxis: Wafarin Use 1st Trimester of
--- NOTE | 2016-09-30 09:23 | Hospitalist Progress Note ---
Assessment and Plan - Time spent with patient Time spent with patient: Greater than 30 minutes (1) Abdominal mass Status: Acute Assessment and plan: S/P excision. Pathology pending. Transfer to floor. Surgery on board. Current Visit: Yes Qualifiers: Abdominal location: epigastric Qualified Code(s): R19.06 - Epigastric swelling, mass or lump (2) Hypertension Status: Acute Assessment and plan: Continue current management. Current Visit: Yes Qualifiers: Hypertension type: essential hypertension Qualified Code(s): I10 - Essential (primary) hypertension Hospitalist: Subjective Interval history: Ms Keen has no complaints, or overnight events. No fever. No abdominal pain. [address] and output is serosanguinous and decreasing. Exam - Constitutional Vitals: Period Temp Pulse Resp BP Sys/Mccauley Pulse Ox Last 24 Hr 97.6 F-98.9 F 82-101 14-29 91-146/47-88 98-100 General appearance: no acute distress, morbidly obese - Head Head exam: Present: normocephalic, atraumatic - Eye Eye exam: Present: EOMI Pupils: Present: CASANDRA - ENT ENT exam: Present: normal exam - Neck Neck exam: Present: normal inspection - Respiratory Respiratory exam: Present: clear to auscultation bilaterally. Absent: rhonchi, wheezes - Cardiovascular Cardiovascular exam: Present: regular rate and rhythm. Absent: gallop, rubs, systolic murmur - GI/Abdominal GI/Abdominal exam: Present: normal bowel sounds, soft, other (midline incision under surgical dressing. Two LINDA drains opposite sides of incision, under surgical dressing.). Absent: distended, firm, guarding, tenderness, rebound - Extremities Exam Extremities exam: Present: normal inspection. Absent: calf tenderness, edema Results - Labs CBC & BMP: 09/30/16 05:53 09/30/16 05:53 Lab Results: I have reviewed the past 24 hour labs Quality Measures - VTE Contraindication to Pharmacological VTE Prophylaxis: Wafarin Use 1st Trimester of
[2016-09-30] MEDS: POTASSIUM CITRATE 10 MEQ TABLET PO SCH ×3 (10:29→21:12)
[2016-09-30] MEDS: hydroCHLOROthiazide 25 MG TABLET PO SCH (10:30)
[2016-09-30] MEDS: LOSARTAN 50 MG TABLET PO SCH (10:30)
[2016-09-30] MEDS: ALUMINUM/MAGNES/SIMETH MAX STR 30 ML UDCUP PO SCH ×3 (10:31→18:48)
[2016-09-30] MEDS: PANTOPRAZOLE 40 MG VIAL IV SCH (10:33)
[2016-09-30] MEDS: DEXTROSE 5% NACL 0.45% 1,000 ML IV SCH ×2 (10:40→21:18)
[2016-09-30] MEDS: ENOXAPARIN 40 MG/0.4 ML SYRINGE SUBCUT SCH (10:51)
--- NOTE | 2016-09-30 13:15 | Pathology Report from [facility] ---
[facility] [place] ACCESSION # : [id number] PATIENT NAME : Jessenia Keen ORDERING DR : BISI SY MD CLINICAL HX: Abdominal Mass POST-OP DX: Same SPECIMEN INFO: Fluid,Peritoneal - 50 mls bloody, cloudy CLASS: II CLASS COMMENTS: Reactive mesothelials, inflammationCELL BLOCK: Same; calretinin +, CD117-, DOG1- CLASS LEGEND: CLASS 0 Material inadequate for diagnosis because of (see comment) CLASS I Absence of atypical or abnormal cells CLASS II Atypical Cytology but no evidence of malignancy CLASS III Cytology suggestive of but not conclusive for malignancy CLASS IV Cytology strongly suggestive of malignancy CLASS V Cytology conclusive for malignancy COLLECTED DATE: 09/28/2016 [facility] REPORT DATE: 09/30/2016 ELECTRONICALLY SIGNED BY: Karmen Villarreal M.D. 09/30/2016 - 9:21:24 MTDJayce
--- NOTE | 2016-09-30 13:18 | Pathology Report from [facility] ---
[facility] ACCESSION # : [id number] PATIENT NAME : Saurabh Garcia ORDERING DR : BISI SY MD CLINICAL HX: Abdominal mass, unknown etiology POST-OP DX: Same SPECIMEN INFO: #1 Section of mass of abdomen, possibly from stomach #2 Stromal tumor stomach #3 Portion of omentum #4 Portion of omentum by stomach upper GROSS DESCRIPTION: #1 Received fresh for frozen section labeled with the patients name SAURABH GARCIA and consists of a fragment of friable tam tissue measuring 2.5 x 1.5 cm. A sales representative malt liquors section submitted for frozen section in cassette FSA. Remaining tissue submitted in cassette 1B.#2 Received in formalin labeled SAURABH GARCIA & #2 is an encapsulated tumor mass measuring 18.5 x 10.5 x 9.0 cm with an attached portion of mucosal tissue present measuring 2.0 x 1.5 cm. There is a 4.0 x 2.5 cm hemorrhagic opening in the capsule which may represent a biopsy site. Roughly 40% of the mass appears to be a solid tumor while the remaining 60% of the tumor is cystic and necrotic. Sections submitted 2A-2C-Tumor & adjacent mucosa, 2D-2F-Areas of more solid tumor, 5B-2Y-Dgnibupf tumor.#3 Received in formalin labeled SAURABH GARCIA & #3 is a portion of omentum measuring 22.0 x 5.8 cm with no masses or other lesions grossly appreciated. A sales representative malt liquors section is submitted in cassette #3.#4 Received in formalin labeled SAURABH GARCIA & #4 is a portion of omentum measuring 18.0 x 7.0 cm with no masses or other lesions grossly appreciated. Esthetic Dermatologist sections are submitted in cassette #4. DIAGNOSIS FOR SAURABH GARCIA: #1 #2 #3 #4RESECTION ABDOMINAL MASS WITH ATTACHED STOMACH TISSUE: TYPE: Gastrointestinal Stromal Tumor, mixed epitheloid and spindle subtype. SITE: Stomach wall. SIZE: 18.5 x 10.5 cm. FOCALITY: Unifocal. MARGINS: Involved by tumor (stomach wall/serosa). (#3 and #4 omental tissue negative). MITOTIC RATE: 20 MF/ 5 mm2. GRADE: High grade (>5 MF/ 5 mm2). NECROSIS: Present, 60% of tumor. RISK OF PROGRESSIVE DISEASE: High. IHC STUDIES: KIT (CD117): Positive; DOG1: Positive. PRERESECTION TREATMENT: Unknown. AJCC PATHOLOGIC STAGE IIIB (pT4pNX). COLLECTED DATE: 09/28/2016 [facility] REPORT DATE: 09/30/2016 ELECTRONICALLY SIGNED BY: Karmen Villarreal M.D. 09/30/2016 - 9:18:58 MTDD
[2016-09-30] MEDS: HYDROmorphone PCA 30 MG/30 ML SYRINGE IV SCH (17:06)
[2016-10-01] MEDS: KETOROLAC 15 MG/1 ML VIAL IV SCH ×2 (03:11→10:35)
[2016-10-01] MEDS: DEXTROSE 5% NACL 0.45% 1,000 ML IV SCH ×2 (03:13→11:43)
[2016-10-01 05:24] LABS: Calcium 8.3 MG/DL (8.5-10.1); Magnesium 2.2 MG/DL (1.8-2.4); Osmolality,Calculated 277.3 MOS/KG (273-304)
[2016-10-01] MEDS: cefOXitin 1,000 MG in SODIUM CHLORIDE 0.9% 100 ML IV SCH (05:55)
--- NOTE | 2016-10-01 06:48 | Oncology Progress Note ---
Assessment and Plan (1) GIST (gastrointestinal stromal tumor), malignant Status: Acute Current Visit: Yes (2) Elevated WBC count Status: Resolved Current Visit: Yes Oncology Subjective PN Interval history: Ms. Keen seems to be doing well status post resection of a large gastric tumor. Pathology returned back as a high-grade 18 cm gastrointestinal stromal tumor with increased mitosis. Her final staging is a stage IIIB pT4NX G2. This makes her at high risk for recurrence and will need 24-36 months of adjuvant Gleevec therapy. I explained this to her this morning. 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 There is nothing to at this point from an oncology standpoint so I will see her in clinic in a couple weeks once she is discharged. I will go back over our conversation this morning and will begin an arrangements for obtaining the Gleevec. If she is still here on Tuesday, I will sit down to rediscuss this with her again. Exam - Constitutional Vitals: Period Temp Pulse Resp BP Sys/Mccauley Pulse Ox Last 24 Hr 97.6 F-98.8 F 76-99 17-30 96-136/54-76 92-100 General appearance: normal weight, no acute distress - Head Head Exam: Present: normocephalic, atraumatic - Eye Eye Exam: Present: EOMI Pupils: Present: PERRL - ENT ENT exam: Present: normal exam, normal oropharynx - Neck Neck exam: Absent: lymphadenopathy, thyromegaly - Respiratory Respiratory exam: Present: CTAB. Absent: wheezes - Cardiovascular Cardiovascular exam: Present: RRR. Absent: JVD, systolic murmur - GI/Abdominal GI/Abdominal exam: Present: soft. Absent: ascites, distended, mass - Neurological Exam Neurological exam: Present: alert, oriented X3 - Psychiatric Psychiatric exam: Present: anxious. Absent: agitated, depressed - Skin Skin exam: Present: warm, dry Results - Labs CBC & BMP: 09/30/16 05:53 10/01/16 04:12 Lab Results: I have reviewed the past 24 hour labs Quality Measures - VTE Contraindication to Pharmacological VTE Prophylaxis: Wafarin Use 1st Trimester of
[2016-10-01 07:40] LABS: Basophils # 0.1 10*3/uL (0.0-0.2); Basophils % 0.5 % (0.0-0.8); Eosinophils # 0.2 10*3/uL (0.0-0.87); Eosinophils % 2.4 % (0.00-10.9); Hemoglobin 9.6 GM/DL (12.0-16.0); Immature Granulocytes % 0.7 %; Immature Granulocytes Absolute 0.06 #; Lymphocytes # 2.2 10*3/uL (1.4-4.0); Lymphocytes % 23.8 % (21.3-54.2); Mean Corpuscular HGB Conc 33.1 GM/DL (32-36); Mean Corpuscular Hemoglobin 28 PG (27-34); Mean Corpuscular Volume 84.5 FL (87-102); Monocytes # 0.6 10*3/uL (0.11-0.8); Monocytes % 6.4 % (1.7-12.7); Neutrophils # 6.1 10*3/uL (1.4-7.4); Neutrophils % 66.2 % (38.7-73.9); Platelet Count 270 T/CUMM (130-400); Red Blood Count 3.43 MC/CUMM (3.8-5.5); Red Cell Distribution Width 14.5 % (9.3-17.3); White Blood Count 9.2 T/CUMM (4-12)
[2016-10-01] MEDS: POTASSIUM CITRATE 10 MEQ TABLET PO SCH ×3 (09:27→21:36)
[2016-10-01] MEDS: hydroCHLOROthiazide 25 MG TABLET PO SCH (09:27)
[2016-10-01] MEDS: clonazePAM 0.5 MG TABLET PO PRN (09:27)
[2016-10-01] MEDS: LOSARTAN 50 MG TABLET PO SCH (09:27)
[2016-10-01] MEDS: ALUMINUM/MAGNES/SIMETH MAX STR 30 ML UDCUP PO SCH ×3 (09:27→17:46)
[2016-10-01] MEDS: PANTOPRAZOLE 40 MG VIAL IV SCH (09:27)
[2016-10-01] MEDS: ENOXAPARIN 40 MG/0.4 ML SYRINGE SUBCUT SCH (09:27)
--- NOTE | 2016-10-01 09:40 | Hospitalist Progress Note ---
Assessment and Plan (1) GIST (gastrointestinal stromal tumor), malignant Status: Acute Assessment and plan: Oncology has evaluated the patient, she will follow up as an outpatient. Current Visit: Yes (2) Hypertension Status: Acute Assessment and plan: Continue current management. Current Visit: Yes Qualifiers: Hypertension type: essential hypertension Qualified Code(s): I10 - Essential (primary) hypertension Hospitalist: Subjective Interval history: No complaints currently. NG tube removed yesterday and she was tranferred to the floor for further management. She is currently ambulating and using the restroom. Exam - Constitutional Vitals: Period Temp Pulse Resp BP Sys/Mccauley Pulse Ox Last 24 Hr 97.5 F-98.8 F 76-99 17-30 96-136/54-76 92-100 General appearance: no acute distress, morbidly obese - Head Head exam: Present: normocephalic, atraumatic - Eye Eye exam: Present: EOMI Pupils: Present: CASANDRA - ENT ENT exam: Present: normal exam - Neck Neck exam: Present: normal inspection - Respiratory Respiratory exam: Present: clear to auscultation bilaterally. Absent: rhonchi, wheezes - Cardiovascular Cardiovascular exam: Present: regular rate and rhythm. Absent: gallop, rubs, systolic murmur - GI/Abdominal GI/Abdominal exam: Present: normal bowel sounds, soft, other (midline incision, under surgical dressing. LINDA drains in place.). Absent: distended, firm, guarding, tenderness, rebound - Extremities Exam Extremities exam: Present: normal inspection. Absent: calf tenderness, edema Results - Labs CBC & BMP: 10/01/16 04:12 10/01/16 04:12 Lab Results: I have reviewed the past 24 hour labs Quality Measures - VTE Contraindication to Pharmacological VTE Prophylaxis: Wafarin Use 1st Trimester of
--- NOTE | 2016-10-01 10:07 | General Surgery Progress Note ---
Assessment and Plan - Time spent with patient Time spent with patient: Less than 30 minutes (1) Abdominal mass Status: Deleted Assessment and plan: Impression: Abdominal mass etiology unknown possibly from the stomach but cannot clearly determine. Plan: 1. Because of her elevated white count and her ascites go ahead and put her on low Mefoxin for right now. 2. We will repeat a CT scan of the abdomen and pelvis tomorrow with contrast nor see if we can identify where this mass may be coming from. 3. She may still need to have BE and a upper GI series is difficult to say. 4. Will get GI to see her for consideration of scopes in order to count to be sure what we might be dealing with. 5. Will consult oncology to look at possible tumor markers and get their opinion as well he might be looking at this time. 09/25/2016. Patient in general is doing better at this time although she is on her menstrual period at this point. Pain in her abdomen is much improved she is tolerating liquids without problems. Labs look good hematocrit is 29 at this time. Follow-up CT scan with contrast suggests that this is coming off probably the greater curvature distal part of the stomach. She is probably going require a partial gastrectomy or a wedge and this will wait for GI to scope her and see what is present internally at this time. Oncology is seen her and looks like we may be looking at a Gists tumor. 09/26/2016. Patient is stable at this time and labs look good with hematocrit 26 today potassium down little bit at 3.4. We will observe these for right now as we get things prepared. She does not have any tenderness or discomfort and tolerated liquids well. Planning EGD tomorrow to count to see how much involvement of the stomach we might have which will dictate hopefully what we can or cannot do at this point time. Will begin to look at the possibility of surgery on Tuesday to remove this mass. 09/27/2016. Patient has undergone the EGD and according Dr. Tony no mass was seen inside the stomach at this time. We know that she has this mass in the abdomen and probably surgical removal of the mass would be the ideal thing. If it is attached to the stomach been able to do a wedge resection of it would be ideal especially since nothing was seen inside the stomach at this time. I discussed findings with the patient at this time and indicated the idea and plans for surgery which we could do tomorrow. I know that we had mentioned this to her previously but this seemed to take her by surprise that we want to move along with surgery tomorrow. She is a little overwhelmed at this time and needs discussed with her family. I will go ahead and try to set her up for surgery tomorrow knowing that if she changes her mind at [facility] to cancel it. 09/29/2016 Patient is afebrile and awake and alert at this time. Minimal NG tube drainage at this point. The abdomen is soft not significantly distended with a few bowel sounds. The incisions clean and dry and the drains are draining 1 decreasing significantly and other one slowly decreasing but moderate amount. Labs look stable at this time with hematocrit of 31. At this point with a blood pressure little low will count to keep her here the 24 hours try to sit her up and see how she does. If she does well and her blood counts remained stable hopefully we could move to the floor tomorrow. 09/30/2016. Patient is stable good urine output this morning and LINDA drainage that is slowly decreasing. Pathology is still pending. NG tube drainage is minimal and on exam she has bowel sounds present even though she has not had any flatus or bowel movement. We will go ahead and pulled the NG tube today probably moved to the floor so we can ambulate her little bit better. Labs look stable hematocrits 31. Will just keep her on sips of water for now possibly some clear liquids tomorrow 10/01/2016 Patient is afebrile and has had some flatus now. Abdomen is soft with hypoactive bowel sounds in the incisions look clean and dry. LINDA drainage is decreasing and we will probably pull them out on Tuesday. Labs seem to be stable at this time. We will start her on some liquids and advance her to some food as she tolerates things. Pathology is back and this is a stromal tumor and Dr. Lewis has spoken to the patient and arrange some follow-up on this. Hope to advance her diet get her ambulatory in the hopes of being able to pull her drains on Tuesday and to let her go home sometime first of the week. Current Visit: Yes Qualifiers: Abdominal location: epigastric Qualified Code(s): R19.06 - Epigastric swelling, mass or lump Subjective Patient reports: Present: no new complaints, pain is less, flatus, afebrile Exam - Constitutional Vitals: Period Temp Pulse Resp BP Sys/Mccauley Pulse Ox Last 24 Hr 97.5 F-98.8 F 76-99 17-30 96-136/54-76 92-100 General appearance: mild distress - Head Head exam: Present: normal inspection - ENT ENT exam: Present: normal exam - Neck Neck exam: Present: normal inspection - Respiratory Respiratory exam: Present: clear to auscultation bilaterally, rales - Cardiovascular Cardiovascular exam: Present: RRR - GI/Abdominal GI/Abdominal exam: Present: tenderness (About the incision), soft, other ( Incisions clean and dry LINDA drainage is decreasing). Absent: distended - Extremities Exam Extremities exam: Present: normal inspection - Neurological Exam Neurological exam: Present: alert, oriented X3, CN II-XII intact - Skin Skin exam: Present: normal color, warm, dry Results - Labs CBC & BMP: 10/01/16 04:12 10/01/16 04:12 Lab Results: I have reviewed the past 24 hour labs Quality Measures - VTE Contraindication to Pharmacological VTE Prophylaxis: Wafarin Use 1st Trimester of
[2016-10-01] MEDS: HYDROmorphone PCA 30 MG/30 ML SYRINGE IV SCH (15:54)
[2016-10-02] MEDS: DEXTROSE 5% NACL 0.45% 1,000 ML IV SCH (08:58)
[2016-10-02] MEDS: ENOXAPARIN 40 MG/0.4 ML SYRINGE SUBCUT SCH (10:40)
[2016-10-02] MEDS: LOSARTAN 50 MG TABLET PO SCH (10:49)
[2016-10-02] MEDS: hydroCHLOROthiazide 25 MG TABLET PO SCH (10:49)
[2016-10-02] MEDS: PANTOPRAZOLE 40 MG VIAL IV SCH (10:49)
[2016-10-02] MEDS: ALUMINUM/MAGNES/SIMETH MAX STR 30 ML UDCUP PO SCH ×3 (10:49→17:23)
[2016-10-02] MEDS: POTASSIUM CITRATE 10 MEQ TABLET PO SCH ×3 (10:49→20:25)
--- NOTE | 2016-10-02 12:08 | Event Note ---
General Surgery Progress Note Chief complaint This patient is a 36-year-old woman admitted with abdominal pain and a large gastrointestinal stromal tumor treated with laparotomy and wedge resection of the stomach and stromal tumor by Dr. Young on 09/28/2016 Interval history The patient is doing well. Her pain is well controlled. She is tolerating a liquid diet and would like to have regular food. LINDA drains are serosanguineous. Hemoglobin is stable Physical exam Benign abdominal exam with expected tenderness and clean incisions. LINDA drains are serosanguineous. Normal bowel sounds. Labs Reviewed, as above Imaging None new Assessment and plan Continue diet as tolerated Monitor LINDA drain output Continue activity with ambulation in the hallway
--- NOTE | 2016-10-02 13:43 | Hospitalist Progress Note ---
Assessment and Plan - Time spent with patient Time spent with patient: Greater than 30 minutes (1) GIST (gastrointestinal stromal tumor), malignant Status: Acute Assessment and plan: Oncology has evaluated the patient, she will follow up as an outpatient. Current Visit: Yes (2) Hypertension Status: Acute Assessment and plan: Continue current management. Current Visit: Yes Qualifiers: Hypertension type: essential hypertension Qualified Code(s): I10 - Essential (primary) hypertension Hospitalist: Subjective Interval history: No complaints or overnight events. Exam - Constitutional Vitals: Period Temp Pulse Resp BP Sys/Mccauley Pulse Ox Last 24 Hr 98.3 F-100.0 F 91-113 16-20 93-131/57-85 91-97 General appearance: no acute distress - Head Head exam: Present: normocephalic, atraumatic - Eye Eye exam: Present: EOMI Pupils: Present: CASANDRA - ENT ENT exam: Present: normal exam - Neck Neck exam: Present: normal inspection - Respiratory Respiratory exam: Present: clear to auscultation bilaterally. Absent: rhonchi, wheezes - Cardiovascular Cardiovascular exam: Present: regular rate and rhythm. Absent: gallop, rubs, systolic murmur - GI/Abdominal GI/Abdominal exam: Present: normal bowel sounds, soft, other (two LINDA drains, with serosanguinous drainage). Absent: distended, firm, guarding, tenderness, rebound - Extremities Exam Extremities exam: Present: normal inspection. Absent: calf tenderness, edema Results - Labs CBC & BMP: 10/01/16 04:12 10/01/16 04:12 Lab Results: I have reviewed the past 24 hour labs Quality Measures - VTE Contraindication to Pharmacological VTE Prophylaxis: Wafarin Use 1st Trimester of
[2016-10-03 06:39] LABS: Calcium 8.8 MG/DL (8.5-10.1); Osmolality,Calculated 278.3 MOS/KG (273-304); Potassium 4.1 MMOL/L (3.5-5.1)
[2016-10-03] MEDS: hydroCHLOROthiazide 25 MG TABLET PO SCH (11:24)
[2016-10-03] MEDS: ALUMINUM/MAGNES/SIMETH MAX STR 30 ML UDCUP PO SCH ×3 (11:24→17:32)
[2016-10-03] MEDS: ENOXAPARIN 40 MG/0.4 ML SYRINGE SUBCUT SCH (11:24)
[2016-10-03] MEDS: LOSARTAN 50 MG TABLET PO SCH (11:24)
[2016-10-03] MEDS: POTASSIUM CITRATE 10 MEQ TABLET PO SCH ×3 (11:25→21:19)
[2016-10-03] MEDS: PANTOPRAZOLE 40 MG VIAL IV SCH (11:25)
--- NOTE | 2016-10-03 12:17 | Event Note ---
General Surgery Progress Note Chief complaint This patient is a 36-year-old woman admitted with abdominal pain and a large gastrointestinal stromal tumor treated with laparotomy and wedge resection of the stomach and stromal tumor by Dr. Young on 09/28/2016 Interval history The patient is doing well. Her pain is well controlled. She is tolerating a regular diet with no nausea or vomiting. LINDA drains are serosanguineous. Hemoglobin is stable Physical exam Benign abdominal exam with expected tenderness and clean incisions. LINDA drains are serosanguineous. Normal bowel sounds. Labs Reviewed, as above Imaging None new Assessment and plan Continue diet as tolerated Monitor LINDA drain output Continue activity with ambulation in the hallway
--- NOTE | 2016-10-03 14:23 | Hospitalist Progress Note ---
Assessment and Plan - Time spent with patient Time spent with patient: Greater than 30 minutes (1) GIST (gastrointestinal stromal tumor), malignant Status: Acute Assessment and plan: Oncology has evaluated the patient, she will follow up as an outpatient. Current Visit: Yes (2) Hypertension Status: Acute Assessment and plan: Continue current management. Current Visit: Yes Qualifiers: Hypertension type: essential hypertension Qualified Code(s): I10 - Essential (primary) hypertension Hospitalist: Subjective Interval history: No complaints overnight events. Exam - Constitutional Vitals: Period Temp Pulse Resp BP Sys/Mccauley Pulse Ox Last 24 Hr 97.6 F-99.2 F 95-99 14-20 97-124/52-73 96-99 General appearance: no acute distress - Head Head exam: Present: normocephalic, atraumatic - Eye Eye exam: Present: EOMI Pupils: Present: CASANDRA - ENT ENT exam: Present: normal exam - Neck Neck exam: Present: normal inspection - Respiratory Respiratory exam: Present: clear to auscultation bilaterally. Absent: rhonchi, wheezes - Cardiovascular Cardiovascular exam: Present: regular rate and rhythm. Absent: gallop, rubs, systolic murmur - GI/Abdominal GI/Abdominal exam: Present: normal bowel sounds, soft, other (2 LINDA drains). Absent: distended, firm, guarding, tenderness, rebound - Extremities Exam Extremities exam: Present: normal inspection. Absent: calf tenderness, edema Results - Labs CBC & BMP: 10/01/16 04:12 10/03/16 05:36 Lab Results: I have reviewed the past 24 hour labs Quality Measures - VTE Contraindication to Pharmacological VTE Prophylaxis: Wafarin Use 1st Trimester of
[2016-10-04 06:35] LABS: Basophils % 0.4 % (0.0-0.8); Eosinophils # 0.2 10*3/uL (0.0-0.87); Hematocrit 28.3 VOL% (35.7-47.0); Hemoglobin 9.2 GM/DL (12.0-16.0); Immature Granulocytes % 0.4 %; Immature Granulocytes Absolute 0.04 #; Lymphocytes # 2.9 10*3/uL (1.4-4.0); Lymphocytes % 27.9 % (21.3-54.2); Mean Corpuscular HGB Conc 32.5 GM/DL (32-36); Mean Corpuscular Hemoglobin 27 PG (27-34); Mean Corpuscular Volume 84.2 FL (87-102); Monocytes # 0.8 10*3/uL (0.11-0.8); Monocytes % 7.5 % (1.7-12.7); Neutrophils # 6.4 10*3/uL (1.4-7.4); Neutrophils % 61.8 % (38.7-73.9); Platelet Count 369 T/CUMM (130-400); Red Blood Count 3.36 MC/CUMM (3.8-5.5); Red Cell Distribution Width 14.3 % (9.3-17.3); White Blood Count 10.4 T/CUMM (4-12)
[2016-10-04 07:01] LABS: Calcium 8.5 MG/DL (8.5-10.1); Magnesium 2.3 MG/DL (1.8-2.4); Osmolality,Calculated 275.5 MOS/KG (273-304); Potassium 3.9 MMOL/L (3.5-5.1)
[2016-10-04] MEDS: LOSARTAN 50 MG TABLET PO SCH (08:43)
[2016-10-04] MEDS: POTASSIUM CITRATE 10 MEQ TABLET PO SCH ×3 (08:43→20:54)
[2016-10-04] MEDS: ENOXAPARIN 40 MG/0.4 ML SYRINGE SUBCUT SCH (08:43)
[2016-10-04] MEDS: hydroCHLOROthiazide 25 MG TABLET PO SCH (08:43)
[2016-10-04] MEDS: ALUMINUM/MAGNES/SIMETH MAX STR 30 ML UDCUP PO SCH ×3 (08:44→17:01)
[2016-10-04] MEDS: PANTOPRAZOLE 40 MG VIAL IV SCH (08:44)
[2016-10-04] MEDS: HYDROmorphone 2 MG/1 ML VIAL IV PRN ×2 (09:11→20:52)
--- NOTE | 2016-10-04 10:53 | Hospitalist Progress Note ---
Assessment and Plan - Time spent with patient Time spent with patient: Greater than 30 minutes (1) GIST (gastrointestinal stromal tumor), malignant Status: Acute Assessment and plan: Oncology has evaluated the patient, she will follow up as an outpatient. Current Visit: Yes (2) Hypertension Status: Acute Assessment and plan: Continue current management. Current Visit: Yes Qualifiers: Hypertension type: essential hypertension Qualified Code(s): I10 - Essential (primary) hypertension Hospitalist: Subjective Interval history: No complaints, LINDA drains pulled this morning. Exam - Constitutional Vitals: Period Temp Pulse Resp BP Sys/Mccauley Pulse Ox Last 24 Hr 97.5 F-100.2 F 90-105 20-20 99-124/61-73 97-100 General appearance: no acute distress - Head Head exam: Present: normocephalic, atraumatic - Eye Eye exam: Present: EOMI Pupils: Present: CASANDRA - ENT ENT exam: Present: normal exam - Neck Neck exam: Present: normal inspection - Respiratory Respiratory exam: Present: clear to auscultation bilaterally. Absent: rhonchi, wheezes - Cardiovascular Cardiovascular exam: Present: regular rate and rhythm. Absent: gallop, rubs, systolic murmur - GI/Abdominal GI/Abdominal exam: Present: normal bowel sounds, soft, other (surgical incisions over abdominal wall). Absent: distended, firm, guarding, tenderness, rebound - Extremities Exam Extremities exam: Present: normal inspection. Absent: calf tenderness, edema Results - Labs CBC & BMP: 10/04/16 05:07 10/04/16 05:07 Lab Results: I have reviewed the past 24 hour labs Quality Measures - VTE Contraindication to Pharmacological VTE Prophylaxis: Wafarin Use 1st Trimester of
--- NOTE | 2016-10-04 17:26 | General Surgery Progress Note ---
Assessment and Plan (1) Abdominal mass Status: Deleted Assessment and plan: Impression: Abdominal mass etiology unknown possibly from the stomach but cannot clearly determine. Plan: 1. Because of her elevated white count and her ascites go ahead and put her on low Mefoxin for right now. 2. We will repeat a CT scan of the abdomen and pelvis tomorrow with contrast nor see if we can identify where this mass may be coming from. 3. She may still need to have BE and a upper GI series is difficult to say. 4. Will get GI to see her for consideration of scopes in order to count to be sure what we might be dealing with. 5. Will consult oncology to look at possible tumor markers and get their opinion as well he might be looking at this time. 09/25/2016. Patient in general is doing better at this time although she is on her menstrual period at this point. Pain in her abdomen is much improved she is tolerating liquids without problems. Labs look good hematocrit is 29 at this time. Follow-up CT scan with contrast suggests that this is coming off probably the greater curvature distal part of the stomach. She is probably going require a partial gastrectomy or a wedge and this will wait for GI to scope her and see what is present internally at this time. Oncology is seen her and looks like we may be looking at a Gists tumor. 09/26/2016. Patient is stable at this time and labs look good with hematocrit 26 today potassium down little bit at 3.4. We will observe these for right now as we get things prepared. She does not have any tenderness or discomfort and tolerated liquids well. Planning EGD tomorrow to count to see how much involvement of the stomach we might have which will dictate hopefully what we can or cannot do at this point time. Will begin to look at the possibility of surgery on Tuesday to remove this mass. 09/27/2016. Patient has undergone the EGD and according Dr. Tony no mass was seen inside the stomach at this time. We know that she has this mass in the abdomen and probably surgical removal of the mass would be the ideal thing. If it is attached to the stomach been able to do a wedge resection of it would be ideal especially since nothing was seen inside the stomach at this time. I discussed findings with the patient at this time and indicated the idea and plans for surgery which we could do tomorrow. I know that we had mentioned this to her previously but this seemed to take her by surprise that we want to move along with surgery tomorrow. She is a little overwhelmed at this time and needs discussed with her family. I will go ahead and try to set her up for surgery tomorrow knowing that if she changes her mind at axis to cancel it. 09/29/2016 Patient is afebrile and awake and alert at this time. Minimal NG tube drainage at this point. The abdomen is soft not significantly distended with a few bowel sounds. The incisions clean and dry and the drains are draining 1 decreasing significantly and other one slowly decreasing but moderate amount. Labs look stable at this time with hematocrit of 31. At this point with a blood pressure little low will count to keep her here the 24 hours try to sit her up and see how she does. If she does well and her blood counts remained stable hopefully we could move to the floor tomorrow. 09/30/2016. Patient is stable good urine output this morning and LINDA drainage that is slowly decreasing. Pathology is still pending. NG tube drainage is minimal and on exam she has bowel sounds present even though she has not had any flatus or bowel movement. We will go ahead and pulled the NG tube today probably moved to the floor so we can ambulate her little bit better. Labs look stable hematocrits 31. Will just keep her on sips of water for now possibly some clear liquids tomorrow 10/01/2016 Patient is afebrile and has had some flatus now. Abdomen is soft with hypoactive bowel sounds in the incisions look clean and dry. LINDA drainage is decreasing and we will probably pull them out on Tuesday. Labs seem to be stable at this time. We will start her on some liquids and advance her to some food as she tolerates things. Pathology is back and this is a stromal tumor and Dr. Leiws has spoken to the patient and arrange some follow-up on this. Hope to advance her diet get her ambulatory in the hopes of being able to pull her drains on Tuesday and to let her go home sometime first of the week. 10/04/2016 Pt is doing well with stable labs. Drains removed and she is eating well. Will look at sending home tomorrow. Current Visit: Yes Qualifiers: Abdominal location: epigastric Qualified Code(s): R19.06 - Epigastric swelling, mass or lump Subjective Patient reports: Present: no new complaints, tolerating a regular diet, bowel movement, afebrile Exam - Constitutional Vitals: Period Temp Pulse Resp BP Sys/Mccauley Pulse Ox Last 24 Hr 97.5 F-100.2 F 90-105 16-20 99-112/49-63 97-100 General appearance: mild distress - Head Head exam: Present: normal inspection - ENT ENT exam: Present: normal exam - Neck Neck exam: Present: normal inspection - Respiratory Respiratory exam: Present: clear to auscultation bilaterally, rales - Cardiovascular Cardiovascular exam: Present: RRR - GI/Abdominal GI/Abdominal exam: Present: hypoactive bowel sounds, soft, other (Drainage is minable and wound is clean without infection) - Extremities Exam Extremities exam: Present: normal inspection - Neurological Exam Neurological exam: Present: alert, oriented X3, CN II-XII intact - Skin Skin exam: Present: normal color, warm, dry Results - Labs CBC & BMP: 10/04/16 05:07 10/04/16 05:07 Lab Results: I have reviewed the past 24 hour labs Quality Measures - VTE Contraindication to Pharmacological VTE Prophylaxis: Wafarin Use 1st Trimester of
--- NOTE | 2016-10-05 07:52 | Discharge Summary ---
Hospital Course - Hospital Course Hospital Course: Discharge summary: Discharge diagnoses: Abdominal mass secondary to Girst tumor Procedure: 1. EGD per Dr. Tony 2. Expiration of the abdomen with removal of tumor of the stomach Consultants. Dr. Tony GI Dr. Lewis oncology Surgeon Dr. Sy Brief summary: 36-year-old -[place] female who came to the emergency room because the onset of abdominal pain. In the progress of her workup she was found to have a large mass in the abdomen at this time. Dr. Lewis and Dr. Tony were consulted at this point. It was clear that this may be a tumor of the stomach known as a Girst tumor. Dr. Tony did an EGD on her but did not find any evidence of any involvement of the stomach especially internally. After long discussion we felt it was best to go ahead and take patient surgery and she finally agreed being a little emotional about at this time. We attempted a laparoscopic evaluation finding a good bit of bloody peritoneal fluid which we did take samples of for cultures and for cytology. At that point we converted to an open in order to really get control of this tumor. At a lot of omentum around the tumor itself there was evidence that he probably had bled internally and into the abdomen causing some of these problems. At that point with careful dissection we were able to free it from the colon down to the base of the stomach and went across that with the TA stapler to remove the tumor itself. Postoperatively she was in the unit for about 24 hours before we moved her to the floor just be on the safe side. Blood counts remained fairly stable state in the upper 20s with the last one being 27. She has progressed fairly well we were able to move her out of the unit after about 24 hours to move to the floor. She has been up and ambulating doing pretty well NG tube came out after he started having some flatus and then we start her on some liquids. So far she is tolerating things fairly nicely advanced to solid food without difficulty having bowel movements. Her drains that were left drained a good bit initially but now has decreased to very minimal and they were pulled yesterday without any problems. She is doing very well incisions look clean and dry at this point. She is doing well enough I think even though she is a little bit anxious that we could go ahead and probably discharge her so we get her back next week and get her clips out and have Dr. Lewis see her in a few weeks to begin to see what treatments he feels need to be done. - Time spent with patient Time with patient DS: Less than 30 minutes Diagnosis - Discharge Diagnosis (1) Abdominal mass Status: Resolved Specialty Discharge - Follow Up or Referrals Follow up with: Brennen Sy MD [Physician] - 1 Week (Suture removal) Lucius Rivero MD [Physician] - (3 weeks) - Speciality Discharge Instructions Surgery Instructions: 1. Wear the abdominal binder when up and about but did not have to sleep with it. 2. May ride in a car and going downstairs. 3. Okay to ambulate but slowly increase level of activities a little bit each day. 4. May use a laxative for bowel movement if things get sluggish. 5. Use pain medicine sparingly to avoid constipation. 6. May shower which is keep a light dressing of the incision until the the clips can be removed. 7. Drink plenty of fluids and eat sensibly but not heavy meals at any one time Discharge Plan - Discharge Data Disposition: Disch To Home/Self Care Condition at Discharge: Stable Discharge Diet: low fat, low cholesterol Activity: increase activity as tolerated, no lifting Hygiene: may shower Weight Bearing at Discharge: full weight bearing Driving: not until seen by doctor Contact your physician if you experience:: fever over 101, Redness or swelling, Nausea/Vomiting, pain uncontrolled by pain medications Wound / Dressing Care Instructions: Wound care daily. 1. May shower use soap of choice. 2. Keep a light dressing over the incision until the clips were removed. 3. Use abdominal binder when up and about the do not have to sleep and it - Discharge Medications New Docusate Sodium Cap [Colace Cap] 100 mg PO DAILY #30 capsule Omeprazole [Prilosec] 20 mg PO BEDTIME #30 capsule Acetaminophen Tab [Tylenol Tab] 650 mg PO Q4H PRN tablet PRN Reason: Fever, Headache, Mild Pain HYDROcodone/ACETAMIN 7.5-325 [[place] 7.5-325] 1 tablet PO Q6H PRN #30 tablet PRN Reason: Pain Moderate (4-7) Continue Albuterol Sulfate [Ventolin HFA] 2 puffs INH Q4H PRN PRN Reason: Shortness Of Breath/Wheezing hydroCHLOROthiazide [Hydrochlorothiazide] 25 mg PO DAILY Losartan [Cozaar] 50 mg PO DAILY - Follow Up or Referral - Forms/Instructions Exam - Constitutional Vitals: Period Temp Pulse Resp BP Sys/Mccauley Pulse Ox Last 24 Hr 97.5 F-99.2 F 93-106 16-20 108-115/49-62 94-100 General appearance: no acute distress - Head Head exam: Present: normal inspection - ENT ENT exam: Present: normal exam - Neck Neck exam: Present: normal inspection - Respiratory Respiratory exam: Present: clear to auscultation bilaterally, rales - Cardiovascular Cardiovascular exam: Present: regular rate and rhythm - GI/Abdominal GI/Abdominal exam: Present: hypoactive bowel sounds, tenderness (Soreness about the incision but otherwise generally doing well), soft, other (Incision clean and dry at this time with no sign of infection or swelling.) - Extremities Exam Extremities exam: Present: normal inspection - Back Exam Back exam: Present: normal inspection - Neurological Exam Neurological exam: Present: alert, oriented X3, CN II-XII intact - Psychiatric Psychiatric exam: Present: normal affect, normal mood, anxious - Skin Skin exam: Present: normal color, warm, dry DS: Provider Date of admission: 09/24/16 10:03 Primary care physician: . No PCP Attending physician on admission: Alessio Watts MD Consults: 09/24/16 10:36 Consult to Physician [CONS] Routine Comment: Consulting Provider: Brennen Sy When should Consulting Provider be notified: Now Consult Notification Comment: DR. SY OFFICE WAS CLOSED @ 1126...I CALLED SURGERY AND LEFT A MESSAGE WITH DENTON TO TELL HIM ABOUT THE CONSULT. 09/24/16 15:58 Consult to Physician [CONS] Routine Comment: Consulting Provider: Lucius Rivero Consult to Specialist Group: Oncology When should Consulting Provider be notified: In am Person Notified: Dr. 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 Thomson Date Notified: 09/25/16 Time Notified: 08:45 Consult Notification Comment: Patient with a large abdominal mass possibly from the stomach please evaluate. Consider whatever scope that appear to be appropriate 09/24/16 16:08 Consult to Physician [CONS] Routine Comment: mass on CT Consulting Provider: Sid Thomson V When should Consulting Provider be notified: In am Person Notified: Dr. Thomson Date Notified: 09/25/16 Time Notified: 08:45 09/27/16 13:18 Consult to Anesthesiology [CONS] Routine Consulting Provider: Reason for Anesthesiology: Pre-op Clearance 09/30/16 08:22 Consult to Physical Therapy [CONS] Routine Reason for Physical Therapy: Evaluate and Treat Start Therapy: Today Consult Comment: Ambulate patient and get her up in the chair twice a day 09/30/16 08:23 Consult to Pharmacy [CONS] Routine Reason for Pharmacy Consult: Adjust Meds Renal Funct Dose/Manage Antibiotics Home Medication Review Inpatient Med Review Discharging clinician: Brennen Sy MD Expected date of discharge: 10/05/16
[2016-10-05] MEDS: ENOXAPARIN 40 MG/0.4 ML SYRINGE SUBCUT SCH (09:25)
[2016-10-05] MEDS: POTASSIUM CITRATE 10 MEQ TABLET PO SCH (09:26)
[2016-10-05] MEDS: LOSARTAN 50 MG TABLET PO SCH (09:26)
[2016-10-05] MEDS: hydroCHLOROthiazide 25 MG TABLET PO SCH (09:26)
[2016-10-05] MEDS: PANTOPRAZOLE 40 MG VIAL IV SCH (09:27)
[2016-10-05] MEDS: ALUMINUM/MAGNES/SIMETH MAX STR 30 ML UDCUP PO SCH ×2 (09:27→13:20)
[2016-10-05 11:29] VITALS: BP 130/76
== END 2016-10-05 14:14 | disposition home or self-care (01) | DRG 982 ==
LOC: N.ED 06:34 → SUATTDRO 10:03 → N.EDINP 10:03 → N.2E 11:05 → N.ICU 09-28 16:53 → N.3E 09-30 18:03
PROVIDERS: ADMIT Internal Medicine; ATTEND Internal Medicine